=== PATIENT | female | born 1960 | race African-American/Black ===

== ENCOUNTER 2023-10-16 08:18 | Outpatient (REF) | payer MEDICAID, SELFPAY ==
[2023-10-16 10:22] LABS: MANUAL DIFF FLAG NO
[2023-10-16 10:25] LABS: Basophils Percent Auto 0.5 % (0-2); Eosinophils Absolute Auto 0.1 X10*3/uL (0.0-0.4); Eosinophils Percent Auto 1.2 % (0-4); Hematocrit 40.9 % (37.0-47.0); Hemoglobin 14.3 g/dl (12.0-16.0); Imm Gran Abs Auto 0.04 X10*3/uL (0.00-0.03); Imm Gran Pct Auto 0.5 % (0.0-0.4); Lymphocytes Absolute Auto 2.7 X10*3/uL (1.2-4.9); Lymphocytes Percent Auto 30.9 % (20-40); Mean Corpuscular Hemoglobin 32.3 pg (27.0-33.0); Mean Corpuscular Volume 92.3 fL (80.0-98.0); Mean Platelet Volume 8.7 fL (9.4-12.3); Monocytes Absolute Auto 0.5 X10*3/uL (0.1-1.2); Monocytes Percent Auto 5.2 % (2-11); Neutrophils Absolute Auto 5.3 x10*3/uL (2.0-8.3); Neutrophils Percent Auto 61.7 % (45-73); Platelet Count 318 X10*3/uL (160-400); Red Blood Count 4.43 X10*6/uL (4.20-5.50); Red Cell Distribution Width 13.5 % (11.0-16.0); White Blood Count 8.6 X10*3/uL (4.8-10.8)
[2023-10-16 11:02] LABS: Free T4 (Free Thyroxine) 1.03 ng/dL (0.71-1.85); Thyroid Stimulating Hormone 1.17 uIU/mL (0.32-4.0)
[2023-10-16 11:29] LABS: Alanine Aminotransferase 10 U/L (0-31); Albumin Level 2.8 g/dL (3.5-5.0); Alkaline Phosphatase 76 U/L (39-117); Anion Gap 14 (12-20); Aspartate Amino Transferase 15 U/L (5-31); Bilirubin Total 0.3 mg/dL (0.0-1.0); Blood Urea Nitrogen 9 mg/dL (9-16); C Reactive Protein 0.31 mg/dL (< or = 0.50); Calcium 8.6 mg/dL (8.4-10.2); Carbon Dioxide 27 mmol/L (22-29); Chloride 93 mmol/L (96-108); Cholesterol 249 mg/dL (<200); Estimated Glomerular Filt Rate > 60; Glucose Random 420 mg/dL (60-115); Potassium 3.3 mmol/L (3.3-5.1); Sodium 131 mmol/L (135-145); Total Protein 7.4 g/dL (6.5-8.0)
== END 2023-10-16 08:19 | disposition home or self-care (01) ==
LOC: HO.LHD 08:18
PROVIDERS: Visit Provider Internal Medicine
DX: R63.4 Abnormal weight loss (principal); G47.33 Obstructive sleep apnea (adult) (pediatric)
CPT/HCPCS: 36415; 80053; 82465; 84439; 84443; 85025; 86140

== ENCOUNTER 2024-09-10 19:58 | Inpatient (IN) | payer MEDICARE, MEDICAID, SELFPAY ==
--- NOTE | ~2024-09-10 | XR_ITS ---
CLINICAL HISTORY: foot infection 3 view left foot Comparison: None Findings: Bones intact. No dislocations. There is diffuse demineralization. There is no cortical or periosteal reactive changes. No significant loss of joint space, osteophytes, or erosions. No ankle effusion. No radiopaque foreign body. IMPRESSION: 1. No acute findings. This document has been electronically signed by: Timur Weaver MD on 09/11/2024 06:41:46
[2024-09-10 20:36] VITALS: BP 126/77; BP 132/76; PULSE 81; PULSE 83; RESP 18; TEMP 35.8; O2SAT 97; BMI 32.3
[2024-09-10 22:34] VITALS: BP 123/72; PULSE 78; RESP 16; O2SAT 98
--- NOTE | 2024-09-10 23:11 | PC.NURSE ---
assist pt with bed correia. foot wound self drained at this time
[2024-09-11] VITALS (9 sets, daily range): BP systolic 106–123; BP diastolic 55–75; PULSE 75–93; RESP 16–19; TEMP 36.4–36.7; O2SAT 95–100
--- NOTE | 2024-09-11 00:51 | ED_ITS ---
HPI - Wound/Laceration General Chief Complaint: Wound/Laceration Stated Complaint: flaring and blistering on L foot Time Seen by Provider: 09/11/24 00:29 Source: patient and family () Mode of arrival: EMS Limitations: no limitations History of Present Illness ED Provider: Dr. Wil Rosas HPI narrative: 64-year-old female with a history of prediabetes, hypertension, obstructive sleep apnea, obesity, bed-bound since 2007 who presents emergency department for evaluation of possible infection of her left foot. The patient states that she developed a heel blister which then spread to her entire foot and then ruptured. She denies any pain in her foot but has noticed increased redness and increased warmth to the foot. Patient denied fever or chills but states she has had increased fatigue. The patient does have a penicillin allergy and had a rash to penicillin and also I reaction to Biaxin. She has not been on antibiotics recently and does not have a history of MRSA. Related Data Allergies Allergy/AdvReac Type Severity Reaction Status Date / Time clarithromycin [From Biaxin] Allergy Unknown Verified 09/10/24 20:40 doxycycline [Doxycycline] Allergy Unknown Verified 09/10/24 20:40 Penicillins Allergy Unknown Verified 09/10/24 20:40 From Keflex Allergy Unknown Uncoded 09/10/24 20:40 Review of Systems 2 Review of Systems: Yes all other systems are reviewed and are negative [facility] Past Medical History [facility] Narrative: Social history: She lives at home with her who is here in the emergency department with her. She denies tobacco, alcohol and drug use. Social History Social History Smoked in Last 30 Days: No Use of substances other than those prescribed or required for medical reasons: No Advance Directives: No Advance Directives Information Provided: No Physical Exam 2 Vital Signs: Vital Signs: Last Vital Signs Temp 97.5 F 09/11/24 01:24 Pulse 88 09/11/24 02:36 Resp 18 09/11/24 02:36 BP 113/66 09/11/24 02:36 Pulse Ox 98 09/11/24 02:36 O2 Del Method Room Air 09/11/24 02:36 BMI result Body Mass Index 32.3 Vital signs were normal Exam: General: Awake, alert in no distress Head: Normocephalic, atraumatic EENT: Lids normal, sclera normal, conjunctiva normal, mouth revealed moist membranes Neck: Supple, no adenopathy Lung: breath sounds symmetric, no wheezing, rales or rhonchi Chest: symmetric movement, nontender Heart: regular rate and rhythm, normal S1, S2 no murmurs or rubs Abdomen: soft, obese, non-tender, nondistended, normal bowel sounds Extremities: Patient has an unroofed blister to her left heel with increased erythema to the plantar surface of the foot with increased warmth, patient had a large blister of the foot which is now deflated with 1 intact blister to the 1st toe. Neuro: Awake, alert, oriented, normal speech, cranial nerves intact, moves all extremities symmetrically Psych: Pleasant, cooperative Before(provided by ) and current photos of left foot Medications Administered Discontinued Medications Generic Name Dose Route Start Last Admin Trade Name Freq PRN Reason Stop Dose Admin Sodium Chloride 1,000 mls @ 999 mls/hr 09/11/24 00:43 09/11/24 02:14 Ns IV 09/11/24 01:43 Infused .Q1H1M STA Infusion Cefazolin Sodium/Dextrose 2 gm in 50 mls @ 100 mls/hr 09/11/24 01:00 09/11/24 01:43 Ancef IV 09/11/24 01:29 Infused ONCE ONE Infusion Medical Decision Making Medical Decision Making MDM Narrative: 64-year-old female with a history of prediabetes, hypertension, obstructive sleep apnea, obesity, bed-bound since 2007 who presents emergency department for evaluation of possible infection of her left foot. The patient states that she developed a heel blister which then spread to her entire foot and then ruptured. She denies any pain in her foot but has noticed increased redness and increased warmth to the foot. Patient denied fever or chills but states she has had increased fatigue. The patient does have a penicillin allergy and had a rash to penicillin and also I reaction to Biaxin. She has not been on antibiotics recently and does not have a history of MRSA. Patient's left foot is erythematous warm to the touch and has a deflated large blister with 1 intact blister to the 1st toe. Differential diagnosis: ?Includes but is not limited to cellulitis caused by toxin produce Streptococcus or Staphylococcus (bullous impetigo), anemia, electrolyte abnormalities Course: Patient's presentation physical examination is consistent with bullous impetigo most likely secondary to a toxin producing staph or strep. I did order laboratory evaluation to include CBC, CMP, ESR, CRP, lactic acid, blood cultures x2 and culture of the unroofed blister of the heel. Patient was ordered to get normal saline IV x1 L and Ancef 2 g IV. I will discuss admission with the covering hospitalist and he requested that admission be held off until laboratory evaluation was available.. 03:38 My independent interpretation patient's laboratory evaluation as follows: WBC elevated 11,700. H&H was normal 14.5 and 40.9. ESR elevated 75. Lactic acid was normal at 1.3. Glucose elevated 168. LFTs were normal. ESR elevated 75. CRP elevated 1.04. I did discuss patient's laboratory evaluation with the covering hospitalist, Dr. Finn and the patient will be admitted for further treatment. Admission/Observation Consideration of admission/observation: Escalation of care including admission/observation considered (Yes) Lab Data 09/11/24 01:09 09/11/24 02:33 Labs: Lab Results 09/11/24 09/11/24 Range/Units 01:09 02:33 WBC 11.7 H (4.8-10.8) X10*3/uL RBC 4.62 (4.20-5.50) X10*6/uL Hgb 14.5 (12.0-16.0) g/dl Hct 40.9 (37.0-47.0) % MCV 88.5 (80.0-98.0) fL MCH 31.4 (27.0-33.0) pg MCHC 35.5 H (31.0-35.0) g/dl RDW 13.8 (11.0-16.0) % Plt Count 299 (160-400) X10*3/uL MPV 8.7 L (9.4-12.3) fL Immature Gran % (Auto) 0.3 (0.0-0.4) % Neut % (Auto) 65.3 (45-73) % Lymph % (Auto) 25.5 (20-40) % [place] % (Auto) 6.2 (2-11) % Eos % (Auto) 2.4 (0-4) % Baso % (Auto) 0.3 (0-2) % Lymph # (Auto) 3.0 (1.2-4.9) X10*3/uL [place] # (Auto) 0.7 (0.1-1.2) X10*3/uL Eos # (Auto) 0.3 (0.0-0.4) X10*3/uL Baso # (Auto) 0.0 (0.0-0.2) X10*3/uL Abs Immat Gran (auto) 0.03 (0.00-0.03) X10*3/uL Absolute Neuts (auto) 7.6 (2.0-8.3) x10*3/uL Absolute Nucleated RBC 0.000 (0.0-0.012) X10*3/uL Nucleated RBC % (auto) 0.0 (0.0-0.2) /100WBC ESR 75 H (0-20) MM/HR Sodium 139 (135-145) mmol/L Potassium 3.5 (3.3-5.1) mmol/L Chloride 102 (96-108) mmol/L Carbon Dioxide 26 (22-29) mmol/L Anion Gap 15 (12-20) BUN 10 (9-16) mg/dL Creatinine 0.55 (0.5-1.4) mg/dL Estim Creat Clear Calc 115.7 Estimated GFR > 60 Random Glucose 168 H (60-115) mg/dL Lactic Acid 1.3 (0.5-2.0) mmol/L Calcium 8.5 (8.4-10.2) mg/dL Total Bilirubin 0.4 (0.0-1.0) mg/dL AST 19 (5-31) U/L ALT 10 (0-31) U/L Alkaline Phosphatase 88 (39-117) U/L C-Reactive Protein 1.04 H (< or = 0.50) mg/dL Total Protein 7.4 (6.5-8.0) g/dL Albumin 3.0 L (3.5-5.0) g/dL Independent Historian Clinical information obtained from an independent historian. History obtained from or confirmed by: Spouse Chronic Conditions Patient?s care impacted by: Hypertension Discharge Plan Discharge Clinical Impression: Bullous impetigo, Cellulitis of left foot Patient Disposition: Admitted As Inpatient Print Language: Ugandan
[2024-09-11] MEDS: 0.9 % Sodium Chloride 1,000 ML 999 ML IV (01:13)
[2024-09-11] MEDS: ceFAZolin Sodium/Dextrose,Iso 2 GM/50 ML PIGGYBACK IV (01:13)
[2024-09-11 01:22] LABS: MANUAL DIFF FLAG NO
[2024-09-11 01:23] LABS: Basophils Percent Auto 0.3 % (0-2); Eosinophils Absolute Auto 0.3 X10*3/uL (0.0-0.4); Eosinophils Percent Auto 2.4 % (0-4); Hematocrit 40.9 % (37.0-47.0); Hemoglobin 14.5 g/dl (12.0-16.0); Imm Gran Abs Auto 0.03 X10*3/uL (0.00-0.03); Imm Gran Pct Auto 0.3 % (0.0-0.4); Lymphocytes Percent Auto 25.5 % (20-40); Mean Corpuscular HGB Conc 35.5 g/dl (31.0-35.0); Mean Corpuscular Hemoglobin 31.4 pg (27.0-33.0); Mean Corpuscular Volume 88.5 fL (80.0-98.0); Mean Platelet Volume 8.7 fL (9.4-12.3); Monocytes Absolute Auto 0.7 X10*3/uL (0.1-1.2); Monocytes Percent Auto 6.2 % (2-11); Neutrophils Absolute Auto 7.6 x10*3/uL (2.0-8.3); Neutrophils Percent Auto 65.3 % (45-73); Platelet Count 299 X10*3/uL (160-400); Red Blood Count 4.62 X10*6/uL (4.20-5.50); Red Cell Distribution Width 13.8 % (11.0-16.0); White Blood Count 11.7 X10*3/uL (4.8-10.8)
[2024-09-11 01:36] LABS: Lactic Acid 1.3 mmol/L (0.5-2.0)
[2024-09-11 01:56] LABS: Erythrocyte Sedimentation Rate 75 MM/HR (0-20)
[2024-09-11 03:06] LABS: Alanine Aminotransferase 10 U/L (0-31); Alkaline Phosphatase 88 U/L (39-117); Anion Gap 15 (12-20); Aspartate Amino Transferase 19 U/L (5-31); Bilirubin Total 0.4 mg/dL (0.0-1.0); Blood Urea Nitrogen 10 mg/dL (9-16); C Reactive Protein 1.04 mg/dL (< or = 0.50); Calcium 8.5 mg/dL (8.4-10.2); Carbon Dioxide 26 mmol/L (22-29); Chloride 102 mmol/L (96-108); Creatinine Clr Calc Pharmacy 115.7; Estimated Glomerular Filt Rate > 60; Glucose Random 168 mg/dL (60-115); Potassium 3.5 mmol/L (3.3-5.1); Sodium 139 mmol/L (135-145); Total Protein 7.4 g/dL (6.5-8.0)
--- NOTE | 2024-09-11 03:43 | PM.IMHP ---
History of Present Illness Date of Service: 09/11/24 Chief Complaint: Left foot infection This is a 64-year-old female with pertinent history of hypertension, MAR on CPAP, bed-bound, obesity presents to the emergency department for concerns of left foot infection. Patient states she noticed a blister to the plantar aspect of left foot 4 days prior to presentation. It has spread to the entire left foot and then ruptured. Patient noticed her left foot has become more erythematous and warmth which has been progressive. No history of skin infections in the past. No preceding event as per the patient. She denies any systemic complaints including fever, chills, nausea or vomiting. No chest pain, palpitations, shortness of breath, abdominal pain, changes in urinary or bowel habits. Patient has been bed-bound since 2007. In the emergency department, patient was given empiric IV antibiotics. Review of Systems Constitutional: Constitutional: Reports no additional constitutional complaints Cardiovascular: Cardiovascular: Reports no additional cardiovascular complaints Respiratory: Respiratory: Reports no additional respiratory complaints Gastrointestinal: Gastrointestinal: Reports no additional gastrointestinal complaints Genitourinary: Genitourinary: Reports no additional female genitourinary complaints [facility] Medical History Obstructive sleep apnea Hypertension Functional capacity: bed bound Patient : No Pertinent family history: No family history of early CAD Social History Smoked in Last 30 Days: No Use of substances other than those prescribed or required for medical reasons: No Advance Directives: No Advance Directives Information Provided: No Meds Allergies Allergy/AdvReac Type Severity Reaction Status Date / Time clarithromycin [From Biaxin] Allergy Unknown Verified 09/10/24 20:40 doxycycline [Doxycycline] Allergy Unknown Verified 09/10/24 20:40 Penicillins Allergy Unknown Verified 09/10/24 20:40 From Keflex Allergy Unknown Uncoded 09/10/24 20:40 Physical Exam Vital Signs and Narrative: Vital Signs: Last Vital Signs Temp 97.5 F 09/11/24 01:24 Pulse 88 09/11/24 02:36 Resp 18 09/11/24 02:36 BP 113/66 09/11/24 02:36 Pulse Ox 98 09/11/24 02:36 O2 Del Method Room Air 09/11/24 02:36 BMI result Body Mass Index 32.3 Middle-aged female lying in bed in no distress Neck supple, no JVD Regular rate and rhythm, S1-S2 heard Regular breath sounds bilaterally, no wheezing or crackles appreciated Abdomen soft, obese, nontender, no guarding, no rigidity Patient is awake, alert and oriented to self, place, time and person ; no focal motor deficit Psych: Normal mood Left foot with erythema to the plantar surface, warmth and bulla to the left 1st toe (patient had a large bulla to the plantar surface of the foot which is now deflated) <before and after pics as below> Skin: Other: Results Labs 09/11/24 01:09 09/11/24 02:33 Labs: Laboratory Results - last 24 hr 09/11/24 09/11/24 01:09 02:33 MCV 88.5 MCH 31.4 MCHC 35.5 H RDW 13.8 Plt Count 299 MPV 8.7 L Immature Gran % (Auto) 0.3 Neut % (Auto) 65.3 Lymph % (Auto) 25.5 [place] % (Auto) 6.2 Eos % (Auto) 2.4 Baso % (Auto) 0.3 Lymph # (Auto) 3.0 [place] # (Auto) 0.7 Eos # (Auto) 0.3 Baso # (Auto) 0.0 Abs Immat Gran (auto) 0.03 Absolute Neuts (auto) 7.6 Absolute Nucleated RBC 0.000 Nucleated RBC % (auto) 0.0 ESR 75 H Anion Gap 15 Estim Creat Clear Calc 115.7 Estimated GFR > 60 Random Glucose 168 H Lactic Acid 1.3 Calcium 8.5 Total Bilirubin 0.4 AST 19 ALT 10 Alkaline Phosphatase 88 C-Reactive Protein 1.04 H Total Protein 7.4 Albumin 3.0 L Assessment and Plan (1) Cellulitis of left foot: Status: Acute Plan This is a 64-year-old female with pertinent history of hypertension, MAR on CPAP, bed-bound, obesity presents to the emergency department for concerns of left foot infection. #. Severe left foot cellulitis with bullae: Will admit patient with broad-spectrum empiric IV antibiotics due to extensive infection (penicillin allergy). Wound care consult. Monitor for improvement. Left foot imaging pending #. Hypertension: Continue home antihypertensives #. MAR: Continue CPAP at bedtime #. Obesity: Counseled regarding diet Med rec pending DVT prophylaxis: Lovenox Full code Admit as inpatient and will require two night minimum hospital stay for IV antibiotics (as above), which is not possible in a lesser acute setting. Quality Stroke Does the patient have a stroke diagnosis?: No VTE Prior VTE?: No VTE Risk Level:: Medical - moderate - high VTE Device Contraindication: Treatment Not Indicated VTE Drug Contraindication: N/A - Med Ordered
[2024-09-11] MEDS: vancomycin/NS 2,000 MG/500 ML PLAST..BAG 250 MG IV (04:59)
[2024-09-11] MEDS: Enoxaparin Sodium 40 MG/0.4 ML SYRINGE SUBCUT (05:00)
[2024-09-11 06:49] LABS: MANUAL DIFF FLAG NO
[2024-09-11 07:02] LABS: Anion Gap 14 (12-20); Blood Urea Nitrogen 10 mg/dL (9-16); Calcium 8.4 mg/dL (8.4-10.2); Carbon Dioxide 27 mmol/L (22-29); Chloride 101 mmol/L (96-108); Creatinine Clr Calc Pharmacy 115.7; Estimated Glomerular Filt Rate > 60; Glucose Random 192 mg/dL (60-115); Potassium 3.2 mmol/L (3.3-5.1); Sodium 139 mmol/L (135-145)
--- NOTE | 2024-09-11 07:05 | PC.NURSE ---
report given to oncoming RN
--- NOTE | 2024-09-11 07:10 | PC.NURSE ---
This play writer assumed care of this Pt at this time.
[2024-09-11] MEDS: cefEPime HCl/D5W 2 GM/50 ML PIGGYBACK IV ×2 (07:14→13:28)
[2024-09-11 07:15] LABS: Basophils Percent Auto 0.4 % (0-2); Eosinophils Absolute Auto 0.1 X10*3/uL (0.0-0.4); Eosinophils Percent Auto 0.9 % (0-4); Hematocrit 38.7 % (37.0-47.0); Hemoglobin 13.3 g/dl (12.0-16.0); Imm Gran Abs Auto 0.05 X10*3/uL (0.00-0.03); Imm Gran Pct Auto 0.5 % (0.0-0.4); Lymphocytes Absolute Auto 1.6 X10*3/uL (1.2-4.9); Lymphocytes Percent Auto 15.9 % (20-40); Mean Corpuscular HGB Conc 34.4 g/dl (31.0-35.0); Mean Corpuscular Hemoglobin 31.1 pg (27.0-33.0); Mean Corpuscular Volume 90.4 fL (80.0-98.0); Mean Platelet Volume 8.9 fL (9.4-12.3); Monocytes Absolute Auto 0.7 X10*3/uL (0.1-1.2); Monocytes Percent Auto 6.6 % (2-11); Neutrophils Absolute Auto 7.7 x10*3/uL (2.0-8.3); Neutrophils Percent Auto 75.7 % (45-73); Platelet Count 265 X10*3/uL (160-400); Red Blood Count 4.28 X10*6/uL (4.20-5.50); Red Cell Distribution Width 13.8 % (11.0-16.0); White Blood Count 10.1 X10*3/uL (4.8-10.8)
[2024-09-11] MEDS: 0.9 % Sodium Chloride Flush 3 ML SYRINGE IVFLUSH ×2 (07:17→16:21)
--- NOTE | 2024-09-11 07:23 | PHA.PROG ---
Admission Date/Time: September 11, 2024 03:41 Indication: Skin Weight in k.718 kg Adjusted body weight in K [place] body weight in Kg: Obesity Dosing Indication % IBW: Serum Creatinine - Last 168 Hours 09/11/24 09/11/24 02:33 06:27 Creatinine 0.55 0.55 Estimated CrCl and GFR - Last 168 Hours 09/11/24 09/11/24 02:33 06:27 Estim Creat Clear Calc 115.7 115.7 Estimated GFR > 60 > 60 Vancomycin Loading Dose: 2000 Current Vancomycin Dosing Regimen: 1250 mg Vancomycin Monitoring using AUC goal of 400 - 600 range with trough as surrogate marker: 475 Date and Time for next Vancomycin Level to be drawn: 09/12 @1700 Pharmacist Comments on Vancomycin Plan: Vancomycin dosing will take advantage of [employer] as a clinical decision support tool that uses Bayesian modeling to calculate individual patient's pharmacokinetic parameters and forecast the patient's drug concentration time course with the target goal AUC 24 range of 400 - 600 mg/L/hr.
[2024-09-11] MEDS: metroNIDAZOLE/NS 500 MG/100 ML PIGGYBACK 100 MG IV ×3 (07:44→22:14)
--- NOTE | 2024-09-11 08:27 | PHA.MEDREC ---
Pharmacy Consult ? Medication Reconciliation Pharmacy has completed the medication reconciliation.Med rec complete, patient able to confirm her 2 prescription blood pressure medications. Patient is also on several supplements but unsure of the dosage of many.
--- NOTE | 2024-09-11 08:59 | PM.EVENT ---
Event Note Date of Service: 09/11/24 Event Note: Chart reviewed patient examined. Agree with H&P and assessment and plan as outlined Time Spent With Patient Time: Total time managing care of this patient today ____ minutes.
[2024-09-11] MEDS: Potassium Chloride Packet 20 MEQ PACKET 40 MEQ PO ×2 (09:41→21:40)
[2024-09-11] MEDS: Ascorbic Acid 500 MG TABLET PO ×2 (09:42→21:41)
[2024-09-11] MEDS: hydroCHLOROthiazide 25 MG TABLET PO (09:42)
[2024-09-11] MEDS: Cholecalciferol (Vitamin D3) 10 MCG TABLET PO (09:42)
[2024-09-11] MEDS: Metoprolol Tartrate 50 MG TABLET PO ×2 (09:42→21:40)
--- NOTE | 2024-09-11 10:50 | MHC.CM.PN ---
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 SHE IS WAITING FOR HIS OFFICE TO ASSIGN HER A NEW PROVIDER IMM DELIVERED DCP: HOME WITH RESUMPTION OF FAMILY SUPPORT. BLS TRANSPORT
[2024-09-11] MEDS: vancomycin HCL 1,250 MG in 0.9 % Sodium Chloride 250 ML 166.67 MG IV (17:21)
[2024-09-12] VITALS (7 sets, daily range): BP systolic 105–135; BP diastolic 60–77; PULSE 82–94; RESP 18–20; TEMP 36.2–36.6; O2SAT 93–98
[2024-09-12] MEDS: cefEPime HCl/D5W 2 GM/50 ML PIGGYBACK IV ×3 (00:03→15:49)
[2024-09-12] MEDS: vancomycin HCL 1,250 MG in 0.9 % Sodium Chloride 250 ML 166.67 MG IV ×2 (04:38→17:57)
[2024-09-12] MEDS: Enoxaparin Sodium 40 MG/0.4 ML SYRINGE SUBCUT (04:38)
[2024-09-12] MEDS: metroNIDAZOLE/NS 500 MG/100 ML PIGGYBACK 100 MG IV ×3 (06:19→22:31)
[2024-09-12 06:30] LABS: MANUAL DIFF FLAG NO
[2024-09-12 06:40] LABS: Basophils Percent Auto 0.3 % (0-2); Eosinophils Absolute Auto 0.2 X10*3/uL (0.0-0.4); Eosinophils Percent Auto 2.5 % (0-4); Hematocrit 38.9 % (37.0-47.0); Hemoglobin 13.5 g/dl (12.0-16.0); Imm Gran Abs Auto 0.02 X10*3/uL (0.00-0.03); Imm Gran Pct Auto 0.2 % (0.0-0.4); Lymphocytes Absolute Auto 1.9 X10*3/uL (1.2-4.9); Lymphocytes Percent Auto 20.2 % (20-40); Mean Corpuscular HGB Conc 34.7 g/dl (31.0-35.0); Mean Corpuscular Hemoglobin 31.3 pg (27.0-33.0); Mean Corpuscular Volume 90.3 fL (80.0-98.0); Mean Platelet Volume 8.5 fL (9.4-12.3); Monocytes Absolute Auto 0.7 X10*3/uL (0.1-1.2); Monocytes Percent Auto 7.2 % (2-11); Neutrophils Absolute Auto 6.4 x10*3/uL (2.0-8.3); Neutrophils Percent Auto 69.6 % (45-73); Platelet Count 265 X10*3/uL (160-400); Red Blood Count 4.31 X10*6/uL (4.20-5.50); Red Cell Distribution Width 13.8 % (11.0-16.0); White Blood Count 9.2 X10*3/uL (4.8-10.8)
[2024-09-12 06:54] LABS: Creatinine Clr Calc Pharmacy 107.8; Estimated Glomerular Filt Rate > 60
[2024-09-12] MEDS: Metoprolol Tartrate 50 MG TABLET PO ×2 (08:07→19:53)
[2024-09-12] MEDS: Pyridoxine HCl (Vitamin B6) 50 MG TABLET 25 MG PO (08:07)
[2024-09-12] MEDS: Cholecalciferol (Vitamin D3) 10 MCG TABLET PO (08:08)
[2024-09-12] MEDS: hydroCHLOROthiazide 25 MG TABLET PO (08:08)
[2024-09-12] MEDS: 0.9 % Sodium Chloride Flush 3 ML SYRINGE IVFLUSH ×3 (08:08→19:44)
[2024-09-12] MEDS: Ascorbic Acid 500 MG TABLET PO ×2 (08:08→19:53)
[2024-09-12 08:38] LABS: Anion Gap 14 (12-20); Blood Urea Nitrogen 12 mg/dL (9-16); Calcium 8.5 mg/dL (8.4-10.2); Carbon Dioxide 25 mmol/L (22-29); Chloride 103 mmol/L (96-108); Glucose Random 155 mg/dL (60-115); Potassium 3.6 mmol/L (3.3-5.1); Sodium 138 mmol/L (135-145)
--- NOTE | 2024-09-12 15:55 | PM.CNGS ---
History of Present Illness Consult details Consult date: 09/12/24 Reason for consult: other Requesting physician: Venkat Porras Narrative: This is a 64-year-old female with pertinent history of hypertension, MAR on CPAP, bed-bound, obesity presents to the emergency department for concerns of left foot infection. Patient states she noticed a blister to the plantar aspect of left foot 4 days prior to presentation. It has spread to the entire left foot and then ruptured. Patient noticed her left foot has become more erythematous and warmth which has been progressive. No history of skin infections in the past. No preceding event as per the patient. She denies any systemic complaints including fever, chills, nausea or vomiting. No chest pain, palpitations, shortness of breath, abdominal pain, changes in urinary or bowel habits. Patient has been bed-bound since 2007. Review of Systems Review of Systems: Yes all other systems are reviewed and are negative PMFSH Past Medical History Medical History Obstructive sleep apnea Hypertension Social History Social History Household Members: Spouse Housing: House Do you presently have visiting nurse or other home services: No (previously had with help w/ ADLs) Patient Tobacco Use Status: Never used Tobacco e-Cigarette/Vaping Use: Never Used Second Hand Smoke Exposure: No service: No Meds Allergies Allergy/AdvReac Type Severity Reaction Status Date / Time clarithromycin [From Biaxin] Allergy Unknown Verified 09/10/24 20:40 doxycycline [Doxycycline] Allergy Unknown Verified 09/10/24 20:40 Penicillins Allergy Unknown Verified 09/10/24 20:40 From Keflex Allergy Unknown Uncoded 09/10/24 20:40 Active Medications: Current Medications Acetaminophen (Acetaminophen 325 Mg Tablet) 650 mg PO Q6H PRN PRN Reason: Pain, Mild 1-3,fever,headache Ascorbic Acid (Ascorbic Acid 500 Mg Tablet) 500 mg PO BID [facility] Last Admin: 09/12/24 08:08 Dose: 500 mg Calcium Carbonate (Calcium Carbonate 750 Mg Tab.Chew) 750 mg PO Q4H PRN PRN Reason: Heartburn Enoxaparin Sodium (Enoxaparin Sodium 40 Mg/0.4 Ml Syringe) 40 mg SUBCUT Q24H [facility] Last Admin: 09/12/24 04:38 Dose: 40 mg Hydrochlorothiazide (Hydrochlorothiazide 25 Mg Tablet) 25 mg PO DAILY [facility]; Protocol Last Admin: 09/12/24 08:08 Dose: 25 mg Vancomycin HCl 1,250 mg/ (Sodium Chloride) 250 mls @ 166.667 mls/hr IV Q12H [facility] Last Infusion: 09/12/24 06:14 Dose: Infused Metronidazole (Flagyl) 500 mg in 100 mls @ 100 mls/hr IV Q8H [facility] Last Infusion: 09/12/24 14:34 Dose: Infused Cefepime HCl (Maxipime) 2 gm in 50 mls @ 100 mls/hr IV Q8H [facility] Last Admin: 09/12/24 15:49 Dose: 100 mls/hr Magnesium Hydroxide (Milk Of Magnesia 30 Ml Oral.Susp) 30 ml PO DAILY PRN PRN Reason: Constipation Melatonin (Melatonin 3 Mg Tablet) 6 mg PO BEDTIME PRN PRN Reason: Insomnia Metoprolol Tartrate (Metoprolol Tartrate 50 Mg Tablet) 50 mg PO BID [facility]; Protocol Last Admin: 09/12/24 08:07 Dose: 50 mg Ondansetron HCl (Ondansetron Hcl 4 Mg/2 Ml Vial) 4 mg IVPUSH Q8H PRN PRN Reason: Nausea and Vomiting Pharmacy Consult (Consult Rx Vancomycin Dosing) 1 each MISCELLANE DAILY PRN PRN Reason: Consult order Pyridoxine HCl (Pyridoxine Hcl (Vitamin B6) 50 Mg Tablet) 25 mg PO DAILY [facility] Last Admin: 09/12/24 08:07 Dose: 25 mg Sodium Chloride (0.9 % Sodium Chloride Flush 3 Ml Syringe) 3 ml IVFLUSH QSHIFT [facility] Last Admin: 09/12/24 15:49 Dose: 3 ml Vitamin D (Cholecalciferol (Vitamin D3) 10 Mcg Tablet) 10 mcg PO DAILY [facility] Last Admin: 09/12/24 08:08 Dose: 10 mcg Home Medications ?Medication ?Instructions ?Recorded ?Confirmed ?Last Taken ?Type Lactobacillus acidophilus 0 mg PO DAILY 09/11/24 Unknown History (Acidophilus capsule) ascorbic acid (vitamin C) 500 mg 500 mg PO BID 09/11/24 09/11/24 Unknown History tablet cholecalciferol (vitamin D3) 10 10 mcg PO DAILY 09/11/24 09/11/24 Unknown History mcg (400 unit) capsule (Vitamin D3) ferrous gluconate 325 mg (37 mg 0 mg 09/11/24 Unknown History iron) tablet hydrochlorothiazide 25 mg tablet 25 mg PO DAILY 09/11/24 09/11/24 09/10/24 History metoprolol tartrate 50 mg tablet 50 mg PO BID 09/11/24 09/11/24 09/10/24 History pyridoxine (vitamin B6) 25 mg 25 mg PO DAILY 09/11/24 09/11/24 Unknown History tablet (Vitamin B-6) vitamin E 268 mg (400 unit) capsule 0 mg PO DAILY 09/11/24 Unknown History Physical Exam Vital Signs: Vital Signs: Last Vital Signs Temp 98 F 09/12/24 15:22 Pulse 89 09/12/24 15:22 Resp 18 09/12/24 15:22 BP 114/77 09/12/24 15:22 Pulse Ox 93 09/12/24 15:22 O2 Del Method Room Air 09/12/24 15:22 BMI result Body Mass Index 32.3 Const: General: cooperative, healthy appearing, comfortable and no acute distress Skin: Other: Left foot has large bullae of serous fluid both on the dorsal foot going to the lateral aspect going around the back of the heel and on the plantar aspect as well. These were all debrided removing the skin and just clear yellowish fluid was removed nothing that looked worrisome. The tissue underneath looks relatively healthy. [place] into the deeper dermal tissue. Since foot mildly edematous palpable pedal pulse Results Labs 09/12/24 06:26 09/12/24 06:26 Labs: Abnormal lab results 09/12/24 Range/Units 06:26 MPV 8.5 L (9.4-12.3) fL Random Glucose 155 H (60-115) mg/dL Short CBC 09/12/24 Range/Units 06:26 WBC 9.2 (4.8-10.8) X10*3/uL Hgb 13.5 (12.0-16.0) g/dl Hct 38.9 (37.0-47.0) % Plt Count 265 (160-400) X10*3/uL BMP 09/12/24 06:26 Sodium 138 Potassium 3.6 Chloride 103 Carbon Dioxide 25 BUN 12 Creatinine 0.59 Calcium 8.5 All other labs normal. Imaging Additional studies: Signed Patient: Bertha Patel MR#: [id number] : 1960 Acct:[id number] Age/Sex: 64 / F ADM Date: 09/11/24 Loc: [facility]: Ashley Finn MD Ordering Physician: Ashley Finn MD Date of Service: 09/11/24 Procedure(s): XR foot LT min 3V Accession Number(s): [id number] cc: Morris Cardenas MD; Ashley Finn MD~ CLINICAL HISTORY: foot infection 3 view left foot Comparison: None Findings: Bones intact. No dislocations. There is diffuse demineralization. There is no cortical or periosteal reactive changes. No significant loss of joint space, osteophytes, or erosions. No ankle effusion. No radiopaque foreign body. IMPRESSION: 1. No acute findings. 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 Debrided this area and should improve now no deeper evidence of any infection. Continue treating with IV antibiotics. Would recommend Xeroform dressings daily until re-epithelialization occurs. Procedures Date of Service Date of Service: 09/12/24 Abscess I/D Site: foot Additional comments: Debridement of epidermal foot bullae just removal of skin no deeper tissue no evidence of any infection. Done with sharp scissors
[2024-09-12 17:19] LABS: Vancomycin Random 15.7 mcg/mL (15-20)
--- NOTE | 2024-09-12 18:15 | P.PNIM_ITS ---
Subjective Subjective Date of Service: 09/12/24 Interval History: Swelling and blisters initially improved yesterday and last night, though came back this morning Occasional clear drainage without purulence Denies foot pain, though some pressure/discomfort Chronic lower extremity numbness at baseline No fever, chills Denies SOB or difficulty breathing No CP Review of Systems Negative except for that which is stated in the HPI. Physical Exam 2 Vital Signs: Vital Signs: Last Vital Signs Temp 98 F 09/12/24 15:22 Pulse 89 09/12/24 15:22 Resp 18 09/12/24 15:22 BP 114/77 09/12/24 15:22 Pulse Ox 93 09/12/24 15:22 O2 Del Method Room Air 09/12/24 15:22 BMI result Body Mass Index 32.3 General: AOx3, no acute distress Resp: CTA bilaterally CVS: S1, S2, RRR GI: +BS, NT, no distention Skin: Warm, dry Neuro: Cranial nerves II-XII grossly intact bilaterally. Motor grossly intact bilaterally Extremities: Left lower extremity with swelling, erythema, warmth, in large bullae as pictured below. Left DP pulses 2+ and brisk cap refil. Psych: Appropriate affect Objective Data Active Medications Acetaminophen (Acetaminophen 325 Mg Tablet) 650 mg PO Q6H PRN PRN Reason: Pain, Mild 1-3,fever,headache Ascorbic Acid (Ascorbic Acid 500 Mg Tablet) 500 mg PO BID [facility] [place] Last Admin: 09/12/24 08:08 Dose: 500 mg Documented By: ANGELICA Calcium Carbonate (Calcium Carbonate 750 Mg Tab.Chew) 750 mg PO Q4H PRN PRN Reason: Heartburn Enoxaparin Sodium (Enoxaparin Sodium 40 Mg/0.4 Ml Syringe) 40 mg SUBCUT Q24H [facility] [place] Last Admin: 09/12/24 04:38 Dose: 40 mg Documented By: JERSON Hydrochlorothiazide (Hydrochlorothiazide 25 Mg Tablet) 25 mg PO DAILY [facility]; Protocol Last Admin: 09/12/24 08:08 Dose: 25 mg Documented By: ANGELICA Metronidazole (Flagyl) 500 mg in 100 mls @ 100 mls/hr IV Q8H [facility] [place] Last Infusion: 09/12/24 14:34 Dose: Infused Documented By: ANGELICA Cefepime HCl (Maxipime) 2 gm in 50 mls @ 100 mls/hr IV Q8H [facility] [place] Last Infusion: 09/12/24 16:25 Dose: Infused Documented By: ANGELICA Vancomycin HCl 1,250 mg/ (Sodium Chloride) 250 mls @ 166.667 mls/hr IV Q12H [facility] [place] Last Admin: 09/12/24 17:57 Dose: 166.67 mls/hr Documented By: ANGELICA Magnesium Hydroxide (Milk Of Magnesia 30 Ml Oral.Susp) 30 ml PO DAILY PRN PRN Reason: Constipation Melatonin (Melatonin 3 Mg Tablet) 6 mg PO BEDTIME PRN PRN Reason: Insomnia Metoprolol Tartrate (Metoprolol Tartrate 50 Mg Tablet) 50 mg PO BID [facility] [place]; Protocol Last Admin: 09/12/24 08:07 Dose: 50 mg Documented By: ANGELICA Ondansetron HCl (Ondansetron Hcl 4 Mg/2 Ml Vial) 4 mg IVPUSH Q8H PRN PRN Reason: Nausea and Vomiting Pharmacy Consult (Consult Rx Vancomycin Dosing) 1 each MISCELLANE DAILY PRN PRN Reason: Consult order Pyridoxine HCl (Pyridoxine Hcl (Vitamin B6) 50 Mg Tablet) 25 mg PO DAILY [facility] [place] [place] Last Admin: 09/12/24 08:07 Dose: 25 mg Documented By: ANGELICA Sodium Chloride (0.9 % Sodium Chloride Flush 3 Ml Syringe) 3 ml IVFLUSH QSHIFT [facility] [place] Last Admin: 09/12/24 15:49 Dose: 3 ml Documented By: ANGELICA Vitamin D (Cholecalciferol (Vitamin D3) 10 Mcg Tablet) 10 mcg PO DAILY [facility] [place] Last Admin: 09/12/24 08:08 Dose: 10 mcg Documented By: ANGELICA Labs 09/12/24 06:26 09/12/24 06:26 Labs: Laboratory Results - last 24 hr 09/12/24 09/12/24 06:26 16:56 MCV 90.3 MCH 31.3 MCHC 34.7 RDW 13.8 Plt Count 265 MPV 8.5 L Immature Gran % (Auto) 0.2 Neut % (Auto) 69.6 Lymph % (Auto) 20.2 [place] % (Auto) 7.2 Eos % (Auto) 2.5 Baso % (Auto) 0.3 Lymph # (Auto) 1.9 [place] # (Auto) 0.7 Eos # (Auto) 0.2 Baso # (Auto) 0.0 Abs Immat Gran (auto) 0.02 Absolute Neuts (auto) 6.4 Absolute Nucleated RBC 0.000 Nucleated RBC % (auto) 0.0 Anion Gap 14 Estim Creat Clear Calc 107.8 Estimated GFR > 60 Random Glucose 155 H Calcium 8.5 Random Vancomycin 15.7 Microbiology Microbiology Results: Microbiology 09/11/24 01:54 Gram Stain - Final Foot Left Routine Culture - Preliminary Culture in progress. 09/11/24 01:10 Blood Culture - Preliminary Blood - Venous No growth after 24 hours. 09/11/24 01:09 Blood Culture - Preliminary Blood - Venous No growth after 24 hours. Assessment and Plan (1) Cellulitis of left foot: Status: Acute (2) Bullous impetigo: Status: Acute Plan This is a 64-year-old female with pertinent history of hypertension, MAR on CPAP, bed-bound, obesity presents to the emergency department for concerns of left foot infection. Bullous impetigo Bulla initially improved, though worsened this morning Continue cefepime, vanc, and metronidazole No sepsis Wound care consult General surgery consult HTN Continue hydrochlorothiazide, metoprolol MAR Continue CPAP at night Obesity class 3 Encourage weight loss Pt will required continued hospital stay for IV antibiotics and specialist consultation with Wound Care and General surgery. Quality Stroke Does the patient have a stroke diagnosis?: No VTE Prior VTE?: No VTE Risk Level:: Medical - moderate - high VTE Device Contraindication: Treatment Not Indicated VTE Drug Contraindication: N/A - Med Ordered
[2024-09-13] VITALS (7 sets, daily range): BP systolic 111–132; BP diastolic 58–77; PULSE 79–95; RESP 17–20; TEMP 36.2–36.7; O2SAT 95–98
[2024-09-13] MEDS: cefEPime HCl/D5W 2 GM/50 ML PIGGYBACK IV ×4 (00:05→23:01)
[2024-09-13] MEDS: Enoxaparin Sodium 40 MG/0.4 ML SYRINGE SUBCUT (03:29)
[2024-09-13] MEDS: metroNIDAZOLE/NS 500 MG/100 ML PIGGYBACK 100 MG IV ×2 (05:36→13:46)
[2024-09-13] MEDS: vancomycin HCL 1,250 MG in 0.9 % Sodium Chloride 250 ML 166.67 MG IV (06:38)
[2024-09-13 06:39] LABS: Creatinine Clr Calc Pharmacy 96.4; Estimated Glomerular Filt Rate > 60
[2024-09-13] MEDS: Pyridoxine HCl (Vitamin B6) 50 MG TABLET 25 MG PO (08:17)
[2024-09-13] MEDS: 0.9 % Sodium Chloride Flush 3 ML SYRINGE IVFLUSH ×3 (08:18→23:04)
[2024-09-13] MEDS: Metoprolol Tartrate 50 MG TABLET PO ×2 (08:18→20:23)
[2024-09-13] MEDS: Ascorbic Acid 500 MG TABLET PO ×2 (08:18→20:23)
[2024-09-13] MEDS: Cholecalciferol (Vitamin D3) 10 MCG TABLET PO (08:18)
[2024-09-13] MEDS: hydroCHLOROthiazide 25 MG TABLET PO (08:18)
--- NOTE | 2024-09-13 09:55 | PM.PNGS ---
Subjective Subjective Date of Service: 09/13/24 Interval history: Denies new complaints Some pain in the left foot No events overnight Physical Exam Vital Signs: Vital Signs: Last Vital Signs Temp 97.6 F 09/13/24 07:45 Pulse 80 09/13/24 07:45 Resp 17 09/13/24 07:45 BP 114/58 L 09/13/24 07:45 Pulse Ox 96 09/13/24 07:45 O2 Del Method Room Air 09/13/24 07:45 BMI result Body Mass Index 32.3 Const: Other: appears morbidly obese General: comfortable and no acute distress Resp: Effort & Inspection: normal respiratory effort Cardio: Rate: regular rate GI: Palpation (GI): Soft to palpation Extrem: Other: Decompress bolus changes on the dorsal aspect of the left foot and the plantar aspect towards the heel, clean, no necrotic tissue Objective Data Active Medications Acetaminophen (Acetaminophen 325 Mg Tablet) 650 mg PO Q6H PRN PRN Reason: Pain, Mild 1-3,fever,headache Ascorbic Acid (Ascorbic Acid 500 Mg Tablet) 500 mg PO BID [facility] Last Admin: 09/13/24 08:18 Dose: 500 mg Documented By: MAU Calcium Carbonate (Calcium Carbonate 750 Mg Tab.Chew) 750 mg PO Q4H PRN PRN Reason: Heartburn Enoxaparin Sodium (Enoxaparin Sodium 40 Mg/0.4 Ml Syringe) 40 mg SUBCUT Q24H [facility] Last Admin: 09/13/24 03:29 Dose: 40 mg Documented By: ALAN Hydrochlorothiazide (Hydrochlorothiazide 25 Mg Tablet) 25 mg PO DAILY [facility]; Protocol Last Admin: 09/13/24 08:18 Dose: 25 mg Documented By: MAU Metronidazole (Flagyl) 500 mg in 100 mls @ 100 mls/hr IV Q8H [facility] Last Infusion: 09/13/24 06:42 Dose: Infused Documented By: ALAN Cefepime HCl (Maxipime) 2 gm in 50 mls @ 100 mls/hr IV Q8H [facility] Last Infusion: 09/13/24 09:21 Dose: Infused Documented By: MAU Vancomycin HCl 1,250 mg/ (Sodium Chloride) 250 mls @ 166.667 mls/hr IV Q12H [facility] Last Infusion: 09/13/24 08:19 Dose: Infused Documented By: MAU Magnesium Hydroxide (Milk Of Magnesia 30 Ml Oral.Susp) 30 ml PO DAILY PRN PRN Reason: Constipation Melatonin (Melatonin 3 Mg Tablet) 6 mg PO BEDTIME PRN PRN Reason: Insomnia Metoprolol Tartrate (Metoprolol Tartrate 50 Mg Tablet) 50 mg PO BID [facility]; Protocol Last Admin: 09/13/24 08:18 Dose: 50 mg Documented By: MAU Ondansetron HCl (Ondansetron Hcl 4 Mg/2 Ml Vial) 4 mg IVPUSH Q8H PRN PRN Reason: Nausea and Vomiting Pharmacy Consult (Consult Rx Vancomycin Dosing) 1 each MISCELLANE DAILY PRN PRN Reason: Consult order Pyridoxine HCl (Pyridoxine Hcl (Vitamin B6) 50 Mg Tablet) 25 mg PO DAILY [facility] Last Admin: 09/13/24 08:17 Dose: 25 mg Documented By: MAU Sodium Chloride (0.9 % Sodium Chloride Flush 3 Ml Syringe) 3 ml IVFLUSH QSHIFT [facility] Last Admin: 09/13/24 08:18 Dose: 3 ml Documented By: MAU Vitamin D (Cholecalciferol (Vitamin D3) 10 Mcg Tablet) 10 mcg PO DAILY [facility] Last Admin: 09/13/24 08:18 Dose: 10 mcg Documented By: MAU Labs 09/12/24 06:26 09/13/24 06:15 Labs: Laboratory Results - last 24 hr 09/12/24 09/13/24 16:56 06:15 Hold Purple Top SEE NOTE Estim Creat Clear Calc 96.4 Estimated GFR > 60 Random Vancomycin 15.7 Microbiology Microbiology Results: Microbiology 09/11/24 01:54 Gram Stain - Final Foot Left Routine Culture - Final 09/11/24 01:10 Blood Culture - Preliminary Blood - Venous No growth after 48 hours. 09/11/24 01:09 Blood Culture - Preliminary Blood - Venous No growth after 48 hours. Procedures Date of Service Date of Service: 09/13/24 Progress Note: A&P Assessment and plan (1) Bullous impetigo: Status: Acute Assessment and Plan: I have bluntly debrided residual bolus changes to drain clear fluid I applied dry dressings and wrapped the foot with Cookie roll Continue wound care Etiology uncertain Time Spent With Patient Time: Total time managing care of this patient today ____ minutes. Quality Stroke Does the patient have a stroke diagnosis?: No VTE Prior VTE?: No VTE Risk Level:: Medical - moderate - high VTE Device Contraindication: Treatment Not Indicated VTE Drug Contraindication: N/A - Med Ordered
--- NOTE | 2024-09-13 15:36 | HO.PM.IMPN ---
Subjective Subjective Date of Service: 09/13/24 Interval History: Seen and evaluated by General surgery yesterday with bedside debridement Some ?soreness? in foot s/p debridement, but no noreen pain Was just seen by Dr. Piña who redressed wound No fever, chills Pt otherwise reports feeling quite well Review of Systems Denies shortness or breath or difficulty breathing No chest pain/pressure, palpitations Denies numbness or tingling in feet Review of Systems: Yes all other systems are reviewed and are negative Physical Exam Vital Signs: Vital Signs: Last Vital Signs Temp 98.1 F 09/13/24 11:40 Pulse 79 09/13/24 11:40 Resp 18 09/13/24 11:40 BP 117/72 09/13/24 11:40 Pulse Ox 98 09/13/24 11:40 O2 Del Method Room Air 09/13/24 11:40 BMI result Body Mass Index 32.3 General: AOx3, no acute distress Resp: CTA bilaterally CVS: S1, S2, RRR GI: +BS, NT, no distention Skin: Warm, dry Neuro: Cranial nerves II-XII grossly intact bilaterally. Motor grossly intact bilaterally Extremities: Physical exam of foot deferred as pt was just seen by general surgery who re-dressed wound. Will defer to their note for physical description Psych: Appropriate affect Objective Data Active Medications Acetaminophen (Acetaminophen 325 Mg Tablet) 650 mg PO Q6H PRN PRN Reason: Pain, Mild 1-3,fever,headache Ascorbic Acid (Ascorbic Acid 500 Mg Tablet) 500 mg PO BID [facility] Last Admin: 09/13/24 08:18 Dose: 500 mg Documented By: MAU Calcium Carbonate (Calcium Carbonate 750 Mg Tab.Chew) 750 mg PO Q4H PRN PRN Reason: Heartburn Enoxaparin Sodium (Enoxaparin Sodium 40 Mg/0.4 Ml Syringe) 40 mg SUBCUT Q24H [facility] Last Admin: 09/13/24 03:29 Dose: 40 mg Documented By: CASTILMadi Hydrochlorothiazide (Hydrochlorothiazide 25 Mg Tablet) 25 mg PO DAILY [facility]; Protocol Last Admin: 09/13/24 08:18 Dose: 25 mg Documented By: MAU Metronidazole (Flagyl) 500 mg in 100 mls @ 100 mls/hr IV Q8H [facility] Last Infusion: 09/13/24 15:08 Dose: Infused Documented By: MAU Cefepime HCl (Maxipime) 2 gm in 50 mls @ 100 mls/hr IV Q8H [facility] Last Admin: 09/13/24 15:05 Dose: 100 mls/hr Documented By: MAU Vancomycin HCl 1,250 mg/ (Sodium Chloride) 250 mls @ 166.667 mls/hr IV Q12H [facility] Last Infusion: 09/13/24 08:19 Dose: Infused Documented By: MAU Magnesium Hydroxide (Milk Of Magnesia 30 Ml Oral.Susp) 30 ml PO DAILY PRN PRN Reason: Constipation Melatonin (Melatonin 3 Mg Tablet) 6 mg PO BEDTIME PRN PRN Reason: Insomnia Metoprolol Tartrate (Metoprolol Tartrate 50 Mg Tablet) 50 mg PO BID [facility]; Protocol Last Admin: 09/13/24 08:18 Dose: 50 mg Documented By: MAU Ondansetron HCl (Ondansetron Hcl 4 Mg/2 Ml Vial) 4 mg IVPUSH Q8H PRN PRN Reason: Nausea and Vomiting Pharmacy Consult (Consult Rx Vancomycin Dosing) 1 each MISCELLANE DAILY PRN PRN Reason: Consult order Pyridoxine HCl (Pyridoxine Hcl (Vitamin B6) 50 Mg Tablet) 25 mg PO DAILY [facility] Last Admin: 09/13/24 08:17 Dose: 25 mg Documented By: MAU Sodium Chloride (0.9 % Sodium Chloride Flush 3 Ml Syringe) 3 ml IVFLUSH QSHIFT [facility] Last Admin: 09/13/24 15:08 Dose: 3 ml Documented By: MAU Vitamin D (Cholecalciferol (Vitamin D3) 10 Mcg Tablet) 10 mcg PO DAILY [facility] Last Admin: 09/13/24 08:18 Dose: 10 mcg Documented By: MAU Labs 09/12/24 06:26 09/13/24 06:15 Labs: Laboratory Results - last 24 hr 09/12/24 09/13/24 16:56 06:15 Hold Purple Top SEE NOTE Estim Creat Clear Calc 96.4 Estimated GFR > 60 Random Vancomycin 15.7 Microbiology Microbiology Results: Microbiology 09/11/24 01:54 Gram Stain - Final Foot Left Routine Culture - Final 09/11/24 01:10 Blood Culture - Preliminary Blood - Venous No growth after 48 hours. 09/11/24 01:09 Blood Culture - Preliminary Blood - Venous No growth after 48 hours. Assessment and Plan (1) Cellulitis of left foot: Status: Acute (2) Bullous impetigo: Status: Acute Plan This is a 64-year-old female with pertinent history of hypertension, MAR on CPAP, bed-bound, obesity presents to the emergency department for concerns of left foot infection. Bullous impetigo Initially treated with cefepime, vanc, and metronidazole x3 days Will dc metronidazole No sepsis Seen by General surgery who did bedside debridement on 09/12 Wound care consult HTN Continue hydrochlorothiazide, metoprolol MAR Continue CPAP at night Obesity class 3 Encourage weight loss Pt will required continued hospital stay for IV antibiotics and specialist consultation with Wound Care and General surgery, and for evaluation of s/p debridement. Quality Stroke Does the patient have a stroke diagnosis?: No VTE Prior VTE?: No VTE Risk Level:: Medical - moderate - high VTE Device Contraindication: Treatment Not Indicated VTE Drug Contraindication: N/A - Med Ordered
[2024-09-13 16:21] LABS: Vancomycin Random 19.6 mcg/mL (15-20)
--- NOTE | 2024-09-13 16:33 | HE.PHANOTE ---
VANCOMYCIN ADDENDUM LEVEL 19.6, REDUCED TO 1 GRAM Q12 HOURS, REPEAT LEVEL BK
[2024-09-13] MEDS: vancomycin HCL 1,000 MG in 0.9 % Sodium Chloride 250 ML 270 MG IV (17:23)
[2024-09-14 03:16] VITALS: BP 132/68; PULSE 94; RESP 18; TEMP 36.3; O2SAT 96
[2024-09-14] MEDS: vancomycin HCL 1,000 MG in 0.9 % Sodium Chloride 250 ML 270 MG IV (05:04)
[2024-09-14] MEDS: Enoxaparin Sodium 40 MG/0.4 ML SYRINGE SUBCUT (05:09)
[2024-09-14 06:19] LABS: Creatinine Clr Calc Pharmacy 107.8; Estimated Glomerular Filt Rate > 60
[2024-09-14] MEDS: cefEPime HCl/D5W 2 GM/50 ML PIGGYBACK IV ×3 (07:50→23:15)
[2024-09-14] MEDS: 0.9 % Sodium Chloride Flush 3 ML SYRINGE IVFLUSH ×3 (07:50→20:15)
[2024-09-14 07:58] VITALS: BP 111/55; PULSE 80; RESP 16; TEMP 36.2; O2SAT 98
[2024-09-14] MEDS: Cholecalciferol (Vitamin D3) 10 MCG TABLET PO (08:17)
[2024-09-14] MEDS: Metoprolol Tartrate 50 MG TABLET PO ×2 (08:17→20:15)
[2024-09-14] MEDS: hydroCHLOROthiazide 25 MG TABLET PO (08:17)
[2024-09-14] MEDS: Pyridoxine HCl (Vitamin B6) 50 MG TABLET 25 MG PO (08:18)
[2024-09-14] MEDS: Ascorbic Acid 500 MG TABLET PO ×2 (08:18→20:15)
--- NOTE | 2024-09-14 10:18 | PM.PNGS ---
Subjective Subjective Date of Service: 09/14/24 <Tony Pinedo PA-C - Last Filed: 09/14/24 12:48> 09/14/24 <Morris Piña MD - Last Filed: 09/14/24 13:28> Patient reports: no new complaints and pain is less <ALEXANDRO Barnett Last Filed: 09/14/24 12:48> Interval history: Patient reports she is doing better today. She denies any pain in her foot at this time. She states the swelling has improved. The wound continues to drain large amounts of fluid, dressing has been changed multiple times in the past day. Denies fever/chills. She is tolerating diet well <ALEXANDRO Barnett Last Filed: 09/14/24 12:48> Physical Exam Vital Signs: Vital Signs: Last Vital Signs Temp 97.2 F 09/14/24 07:58 Pulse 80 09/14/24 07:58 Resp 16 09/14/24 07:58 BP 111/55 L 09/14/24 07:58 Pulse Ox 98 09/14/24 07:58 O2 Del Method Room Air 09/14/24 07:58 BMI result Body Mass Index 32.3 <Tony Pinedo PA-C - Last Filed: 09/14/24 12:48> Const: General: comfortable and no acute distress <ALEXANDRO Barnett Last Filed: 09/14/24 12:48> Orientation/consciousness: patient oriented x3 <Tony Pinedo PA-C - Last Filed: 09/14/24 12:48> Resp: Effort & Inspection: normal respiratory effort and able to speak in complete sentences <ALEXANDRO Barnett Last Filed: 09/14/24 12:48> Neuro: General: patient oriented x3 <ALEXANDRO Barnett Last Filed: 09/14/24 12:48> Extrem: Other: Left foot dressing in place, saturated with clear yellow, serous fluid. Dressings were removed. Wound continues to weep. 1+ pitting edema. Sensation in the toes intact <ALEXANDRO Barnett Last Filed: 09/14/24 12:48> Left lower extremity: edema <ALEXANDRO Barnett Last Filed: 09/14/24 12:48> Objective Data Active Medications Acetaminophen (Acetaminophen 325 Mg Tablet) 650 mg PO Q6H PRN PRN Reason: Pain, Mild 1-3,fever,headache Ascorbic Acid (Ascorbic Acid 500 Mg Tablet) 500 mg PO BID [facility] Last Admin: 09/14/24 08:18 Dose: 500 mg Documented By: MAU Calcium Carbonate (Calcium Carbonate 750 Mg Tab.Chew) 750 mg PO Q4H PRN PRN Reason: Heartburn Enoxaparin Sodium (Enoxaparin Sodium 40 Mg/0.4 Ml Syringe) 40 mg SUBCUT Q24H [facility] Last Admin: 09/14/24 05:09 Dose: 40 mg Documented By: ROSANNA Hydrochlorothiazide (Hydrochlorothiazide 25 Mg Tablet) 25 mg PO DAILY [facility]; Protocol Last Admin: 09/14/24 08:17 Dose: 25 mg Documented By: MAU Cefepime HCl (Maxipime) 2 gm in 50 mls @ 100 mls/hr IV Q8H [facility] Last Infusion: 09/14/24 08:21 Dose: Infused Documented By: MAU Vancomycin HCl 1,000 mg/ (Sodium Chloride) 270 mls @ 270 mls/hr IV Q12H [facility] Last Infusion: 09/14/24 06:12 Dose: Infused Documented By: ROSANNA Magnesium Hydroxide (Milk Of Magnesia 30 Ml Oral.Susp) 30 ml PO DAILY PRN PRN Reason: Constipation Melatonin (Melatonin 3 Mg Tablet) 6 mg PO BEDTIME PRN PRN Reason: Insomnia Metoprolol Tartrate (Metoprolol Tartrate 50 Mg Tablet) 50 mg PO BID [facility]; Protocol Last Admin: 09/14/24 08:17 Dose: 50 mg Documented By: MAU Ondansetron HCl (Ondansetron Hcl 4 Mg/2 Ml Vial) 4 mg IVPUSH Q8H PRN PRN Reason: Nausea and Vomiting Pharmacy Consult (Consult Rx Vancomycin Dosing) 1 each MISCELLANE DAILY PRN PRN Reason: Consult order Pyridoxine HCl (Pyridoxine Hcl (Vitamin B6) 50 Mg Tablet) 25 mg PO DAILY [facility] Last Admin: 09/14/24 08:18 Dose: 25 mg Documented By: MAU Sodium Chloride (0.9 % Sodium Chloride Flush 3 Ml Syringe) 3 ml IVFLUSH QSHIFT [facility] Last Admin: 09/14/24 07:50 Dose: 3 ml Documented By: MAU Vitamin D (Cholecalciferol (Vitamin D3) 10 Mcg Tablet) 10 mcg PO DAILY [facility] Last Admin: 09/14/24 08:17 Dose: 10 mcg Documented By: MAU <Tony Pinedo PA-C - Last Filed: 09/14/24 12:48> Labs CBC & Chem 7: 09/12/24 06:26 09/14/24 05:34 <Tony Pinedo PA-C - Last Filed: 09/14/24 12:48> Labs: Laboratory Results - last 24 hr 09/13/24 09/14/24 15:55 05:34 Estim Creat Clear Calc 107.8 Estimated GFR > 60 Random Vancomycin 19.6 <Tony Pinedo PA-C - Last Filed: 09/14/24 12:48> Microbiology Microbiology Results: Microbiology 09/11/24 01:54 Gram Stain - Final Foot Left Routine Culture - Final <Tony Pinedo PA-C - Last Filed: 09/14/24 12:48> Procedures Date of Service Date of Service: 09/14/24 <Tony Pinedo PA-C - Last Filed: 09/14/24 12:48> 09/14/24 <Morris Piña MD - Last Filed: 09/14/24 13:28> Progress Note: A&P Assessment and plan (1) Bullous impetigo: Status: Acute <Tony Pinedo PA-C - Last Filed: 09/14/24 12:48> Assessment and Plan: Continue wound care No new complaints Dressing changes as needed Edema has improved Seen and examined independently <Morris Piña MD - Last Filed: 09/14/24 13:28> Assessment and Plan: 64-year-old female being followed for bullous impetigo. Patient reports some improvement today. Pain is significantly less, swelling has decreased. She is afebrile. Tolerating diet. Passing BM. Flagyl was discontinued yesterday per hospital medicine, she remains on cefepime and vancomycin. Bedside debridement of blisters was performed on 09/12. On exam edema of the foot has improved slightly, she still has 1+ pitting edema up to the level of the malleolus. The wound continues to weep large amounts of serous fluid. It is largely nontender to palpation, sensation in the toes remains intact. No evidence of necrotic tissue at this time. The wound was redressed with Xeroform, gauze and wrapped with Kerlix. Continue IV antibiotics Dressing changes as needed, at least daily, likely sooner due to how fast she is saturating dressings Continue with diet, recommend adequate hydration Wound consult pending We will continue to follow <Tony Pinedo PA-C - Last Filed: 09/14/24 12:48> Time Spent With Patient Time: Total time managing care of this patient today __30__ minutes. <Tony Pinedo PA-C - Last Filed: 09/14/24 12:48> Quality Stroke Does the patient have a stroke diagnosis?: No <Tony Pinedo PA-C - Last Filed: 09/14/24 12:48> VTE Prior VTE?: No <Tony Pinedo PA-C - Last Filed: 09/14/24 12:48> VTE Risk Level:: Medical - moderate - high <Tony Pinedo PA-C - Last Filed: 09/14/24 12:48> VTE Device Contraindication: Treatment Not Indicated <Tony Pinedo PA-C - Last Filed: 09/14/24 12:48> VTE Drug Contraindication: N/A - Med Ordered <Tony Pinedo PA-C - Last Filed: 09/14/24 12:48>
[2024-09-14 11:23] VITALS: BP 109/57; PULSE 76; RESP 16; TEMP 36.7; O2SAT 96
--- NOTE | 2024-09-14 14:25 | HO.WOUND ---
Wound Consult: Initial 64yr old?[place] [facility] See progress notes and H&P for detailed history.? Wound consult placed for Left Foot.? Patient agreeable to assessment and photo documentation.? Chart review completed - patient has been seen and followed by General Surgery team with debridement and topical recommendations made for xeroform and dry gauze wrap. Per Dr. Marley would like my recommendations and teaching to be performed with family. Arrival to bedside patient was not aware of d/c today. She ultimately requested to have an additional day to take first does of new antibiotic. She is requesting VNA - I informed her since she did not have a PCP she would not be eligible to VNA per chart review. I discussed with her and her the easy of this wound it woud just come down to frequency. They report understanding. had to leave for work at the time of my consult. Direct care team or myself will be able to provide teaching for xeroform dressings at home. Dressing not removed at this time. Change earlier by surgery team. Recommendations: Left Foot - Cleanse with N moist gauze, pat dry. Apply skin prep to periwound. Cover open wound bed with xeroform, followed by dry gauze, wrap. Change daily or as needed for strike through drainage. Re-consult wound care Nurse for wound deterioration or wound changes.
[2024-09-14 15:43] VITALS: BP 118/59; PULSE 76; RESP 16; TEMP 36.7; O2SAT 97
[2024-09-14 16:32] LABS: Vancomycin Trough 19.6 mcg/mL (10.0-20.0)
--- NOTE | 2024-09-14 16:51 | HO.PM.IMPN ---
Subjective Subjective Date of Service: 09/14/24 Interval History: no fever, minimal foot pain, still lots of drainage from the foot wound Review of Systems Review of Systems: Yes all other systems are reviewed and are negative Physical Exam Vital Signs: Vital Signs: Last Vital Signs Temp 98.1 F 09/14/24 15:43 Pulse 76 09/14/24 15:43 Resp 16 09/14/24 15:43 BP 118/59 L 09/14/24 15:43 Pulse Ox 97 09/14/24 15:43 O2 Del Method Room Air 09/14/24 15:43 BMI result Body Mass Index 32.3 Gen: in no acute distress HEENT: sclera anicteric, moist mucus membranes Neck: supple Lungs: clear to auscultation bilaterally Heart: regular rate and rhythm, no murmurs Abd: soft, non-tender, non-distended Ext: no edema Skin: warm/well-perfused, L foot swollen with extensive lateral and plantar bullous wound with yellow serous fluid Neuro: alert and oriented x3, no focal findings Psych: appropriate affect Objective Data Active Medications Acetaminophen (Acetaminophen 325 Mg Tablet) 650 mg PO Q6H PRN PRN Reason: Pain, Mild 1-3,fever,headache Ascorbic Acid (Ascorbic Acid 500 Mg Tablet) 500 mg PO BID [facility] Last Admin: 09/14/24 08:18 Dose: 500 mg Documented By: MAU Calcium Carbonate (Calcium Carbonate 750 Mg Tab.Chew) 750 mg PO Q4H PRN PRN Reason: Heartburn Enoxaparin Sodium (Enoxaparin Sodium 40 Mg/0.4 Ml Syringe) 40 mg SUBCUT Q24H [facility] Last Admin: 09/14/24 05:09 Dose: 40 mg Documented By: ROSANNA Hydrochlorothiazide (Hydrochlorothiazide 25 Mg Tablet) 25 mg PO DAILY [facility]; Protocol Last Admin: 09/14/24 08:17 Dose: 25 mg Documented By: MAU Cefepime HCl (Maxipime) 2 gm in 50 mls @ 100 mls/hr IV Q8H [facility] Last Infusion: 09/14/24 16:13 Dose: Infused Documented By: AKBAR Vancomycin HCl 1,000 mg/ (Sodium Chloride) 270 mls @ 270 mls/hr IV Q12H [facility] Last Infusion: 09/14/24 06:12 Dose: Infused Documented By: ROSANNA Magnesium Hydroxide (Milk Of Magnesia 30 Ml Oral.Susp) 30 ml PO DAILY PRN PRN Reason: Constipation Melatonin (Melatonin 3 Mg Tablet) 6 mg PO BEDTIME PRN PRN Reason: Insomnia Metoprolol Tartrate (Metoprolol Tartrate 50 Mg Tablet) 50 mg PO BID [facility]; Protocol Last Admin: 09/14/24 08:17 Dose: 50 mg Documented By: MAU Ondansetron HCl (Ondansetron Hcl 4 Mg/2 Ml Vial) 4 mg IVPUSH Q8H PRN PRN Reason: Nausea and Vomiting Pharmacy Consult (Consult Rx Vancomycin Dosing) 1 each MISCELLANE DAILY PRN PRN Reason: Consult order Pyridoxine HCl (Pyridoxine Hcl (Vitamin B6) 50 Mg Tablet) 25 mg PO DAILY [facility] Last Admin: 09/14/24 08:18 Dose: 25 mg Documented By: MAU Sodium Chloride (0.9 % Sodium Chloride Flush 3 Ml Syringe) 3 ml IVFLUSH QSHIFT [facility] Last Admin: 09/14/24 15:34 Dose: 3 ml Documented By: AKBAR Vitamin D (Cholecalciferol (Vitamin D3) 10 Mcg Tablet) 10 mcg PO DAILY [facility] Last Admin: 09/14/24 08:17 Dose: 10 mcg Documented By: MAU Labs 09/12/24 06:26 09/14/24 05:34 Labs: Laboratory Results - last 24 hr 09/14/24 09/14/24 05:34 15:46 Estim Creat Clear Calc 107.8 Estimated GFR > 60 Vancomycin Trough 19.6 Assessment and Plan (1) Cellulitis of left foot: Status: Acute (2) Bullous impetigo: Status: Acute Plan d4 for 64yo bed-bound F with HTN and MAR on CPAP admitted for L foot infection bullous impetigo - cefepime + vancomycin 09/11-, ID consult re PO antibiotics - Gen Surg following, bedside debridement done 09/12 - Wound Care consulted: Cleanse with N moist gauze, pat dry. Apply skin prep to periwound. Cover open wound bed with xeroform, followed by dry gauze, wrap. Change daily or as needed for strike through drainage. HTN - continue HCTZ + metoprolol tartrate MAR - CPAP at night VTE ppx - enoxaparin dispo - plan home with VNA In my clinical judgment, the patient requires continued inpatient hospitalization for the following reasons: IV ABX, wound care, expert consultation Total time managing care of this patient today: 35 minutes. Quality Stroke Does the patient have a stroke diagnosis?: No VTE Prior VTE?: No VTE Risk Level:: Medical - moderate - high VTE Device Contraindication: Treatment Not Indicated VTE Drug Contraindication: N/A - Med Ordered
--- NOTE | 2024-09-14 16:57 | HE.PHANOTE ---
RE: VANCO DOSING Trough came back as 19.6 mg/L which is supratherapeutic for skin infection indication. Dose is reduced to 750 mg q12h, next trough is scheduled for 09/15/24 @1600.
[2024-09-14] MEDS: vancomycin HCL 750 MG in 0.9 % Sodium Chloride 250 ML 265 MG IV (18:05)
[2024-09-14 19:28] VITALS: BP 117/64; PULSE 81; RESP 18; TEMP 36.7; O2SAT 98
[2024-09-14 23:03] VITALS: BP 130/74; PULSE 83; RESP 18; TEMP 36.5; O2SAT 97
[2024-09-15 04:00] VITALS: BP 114/59; PULSE 76; RESP 18; TEMP 36.5; O2SAT 98
[2024-09-15] MEDS: Enoxaparin Sodium 40 MG/0.4 ML SYRINGE SUBCUT (04:00)
[2024-09-15] MEDS: vancomycin HCL 750 MG in 0.9 % Sodium Chloride 250 ML 265 MG IV (05:45)
[2024-09-15 06:52] LABS: Creatinine Clr Calc Pharmacy 109.7; Estimated Glomerular Filt Rate > 60
[2024-09-15 07:59] VITALS: BP 112/64; PULSE 80; RESP 16; TEMP 36.9; O2SAT 98
[2024-09-15] MEDS: cefEPime HCl/D5W 2 GM/50 ML PIGGYBACK IV (08:16)
[2024-09-15] MEDS: Ascorbic Acid 500 MG TABLET PO (08:17)
[2024-09-15] MEDS: Pyridoxine HCl (Vitamin B6) 50 MG TABLET 25 MG PO (08:17)
[2024-09-15] MEDS: Metoprolol Tartrate 50 MG TABLET PO (08:17)
[2024-09-15] MEDS: 0.9 % Sodium Chloride Flush 3 ML SYRINGE IVFLUSH (08:17)
[2024-09-15] MEDS: hydroCHLOROthiazide 25 MG TABLET PO (08:17)
[2024-09-15] MEDS: Cholecalciferol (Vitamin D3) 10 MCG TABLET PO (08:17)
[2024-09-15 12:00] VITALS: BP 115/60; PULSE 80; RESP 18; TEMP 36.8; O2SAT 98
--- NOTE | 2024-09-15 12:14 | MHC.CM.PN ---
Per MD patient medically cleared for dc home w/ new [facility] for SN/ every other day wound care. Prior to dc wound RN will change dressing, teach , and provide supplies. [facility] will see patient 09/17. BLS transport scheduled for 5pm. RN, patient and aware. IMM delivered.
--- NOTE | 2024-09-15 14:53 | HO.WOUND ---
Wound Consult: Follow up 64yr old?female admitted to [facility] on 09/11/24- See progress notes and H&P for detailed history.? Wound consult placed for Left Foot.? Patient agreeable to assessment and photo documentation.? Patient nad present while eduction provided on how to perform dressing change and frequency. Provided s/s to report and when wound should be assessed. Patient has VNA set up and will perform dressing every other day while will change alternate days while daily dressing change is needed. Left Foot - Cleanse with saline moist gauze, pat dry. Apply triad barrier cream to periwound. Cover open wound bed with xeroform, followed by dry gauze, Optilock dressing and wrap. May complete with félix wrap. Change daily or as needed for strike through drainage. Elevate on pillows and float heel off of bed surface. Details from previous assessment: Chart review completed - patient has been seen and followed by General Surgery team with debridement and topical recommendations made for xeroform and dry gauze wrap. Per Dr. Marley would like my recommendations and teaching to be performed with family. Arrival to bedside patient was not aware of d/c today. She ultimately requested to have an additional day to take first does of new antibiotic. She is requesting VNA - I informed her since she did not have a PCP she would not be eligible to VNA per chart review. I discussed with her and her the easy of this wound it woud just come down to frequency. They report understanding. had to leave for work at the time of my consult. Direct care team or myself will be able to provide teaching for xeroform dressings at home. Dressing not removed at this time. Change earlier by surgery team. Recommendations: Left Foot - Cleanse with N moist gauze, pat dry. Apply skin prep to periwound. Cover open wound bed with xeroform, followed by dry gauze, wrap. Change daily or as needed for strike through drainage.
--- NOTE | 2024-09-15 15:42 | W.MHC.F2F ---
Service Date Service Date: 09/15/24 Encounter Date of encounter: 09/15/24 Reasons for Services Signs and symptoms assessed: wound care Reason for penitentiary: wound care MD Overseeing Care: Morris Cadrenas Homebound: Leaving the home is medically contraindicated at this time without the asist of a device and/or another person due th the listed conditions above and below. Reason homebound: bedbound/chairbound Homebound supporting statement: Wound care L foot: Cleanse with N moist gauze, pat dry. Apply skin prep to periwound. Cover open wound bed with xeroform, followed by dry gauze, wrap. Change daily or as needed for strike through drainage. Use Optilock non-adhesive super absorbent wound dressing if drainage soaks through dressing more than once daily Certification: Based on the above findings, I certify that this patient is confined to the home and needs intermittent penitentiary care, physical therapy and/or speech therapy, or continues to need occupational therapy. The patient is under my care, and I have initiated the establishment of the plan of care. The patient will be followed by a physician who will periodically review the plan of care. Time Spent With Patient Time: Total time managing care of this patient today ____ minutes.
[2024-09-15] MEDS: Clindamycin HCL 300 MG CAPSULE PO (15:57)
--- NOTE | 2024-09-15 16:34 | P.DS_ITS ---
DS: Providers Provider Date of Service: 09/15/24 Date of admission: 09/11/24 03:41 Date of discharge: 09/15/24 Primary care physician: Morris Cardenas MD Consults: 09/12/24 08:08 Consult to Wound Care Routine Reason for consultation: Right heel wound with large bullae over most of foot 09/12/24 10:56 Consult to General Surgery Routine Consulting Provider: [facility] General Surgeons Reason for consultation: Left foot cellulitis with significant bullae 09/15/24 15:18 Consult to Infectious Diseases Routine Consulting Provider: [facility] Reason for consultation: impetigo DS: Diagnosis Discharge Diagnosis (1) Cellulitis of left foot: Status: Acute (2) Bullous impetigo: Status: Acute DS: Summary Hospital Course Hospital Course: From the history and physical by the admitting hospitalist, Daly Finn MD, 09/11/24: This is a 64-year-old female with pertinent history of hypertension, MAR on CPAP, bed-bound, obesity presents to the emergency department for concerns of left foot infection. Patient states she noticed a blister to the plantar aspect of left foot 4 days prior to presentation. It has spread to the entire left foot and then ruptured. Patient noticed her left foot has become more erythematous and warmth which has been progressive. No history of skin infections in the past. No preceding event as per the patient. She denies any systemic complaints including fever, chills, nausea or vomiting. No chest pain, palpitations, shortness of breath, abdominal pain, changes in urinary or bowel habits. Patient has been bed-bound since 2007. In the emergency department, patient was given empiric IV antibiotics. 64yo bed-bound F with HTN and MAR on CPAP admitted to the medical-surgical unit for L foot infection without sepsis. Infection appeared to be a type of bullous impetigo. She was treated with cefepime and vancomycin for 4 days. General Surgery was consulted and did a bedside debridement of the bullae on 09/12. She improved and was discharged on 7 days of clindamycin with VNA services for wound care. Per wound care transitions manager, instructed family to cleanse with moist gauze then pat dry. Apply skin prep to periwound. Cover open wound bed with xeroform, followed by dry gauze, wrap. Change daily or as needed for strike through drainage. Use Optilock non-adhesive super absorbent wound dressing if drainage soaks through dressing more than once daily. Time Attestation Discharge Coordination Time (in mins): 50 Quality: Safe Use of Opioids Does Pt have an Active Cancer Diagnosis on the Problem List?: No Quality: Stroke Does the patient have a stroke diagnosis?: No Physical Exam Vital Signs: Vital Signs: Last Vital Signs Temp 98.3 F 09/15/24 12:00 Pulse 80 09/15/24 12:00 Resp 18 09/15/24 12:00 BP 115/60 09/15/24 12:00 Pulse Ox 98 09/15/24 12:00 O2 Del Method Room Air 09/15/24 12:00 BMI result Body Mass Index 32.3 Gen: in no acute distress HEENT: sclera anicteric, moist mucus membranes Neck: supple Lungs: clear to auscultation bilaterally Heart: regular rate and rhythm, no murmurs Abd: soft, non-tender, non-distended Ext: no edema Skin: warm/well-perfused, L foot with extensive lateral and plantar bullous wound with yellow serous fluid without any purulence and minimal erythema Neuro: alert and oriented x3, no focal findings Psych: appropriate affect DS: Data Data Completed and Pending Completed studies during hospitalization [Text1]: Laboratory Results WBC 9.2 X10*3/uL (4.8-10.8) 09/12/24 06:26 RBC 4.31 X10*6/uL (4.20-5.50) 09/12/24 06:26 Hgb 13.5 g/dl (12.0-16.0) 09/12/24 06:26 Hct 38.9 % (37.0-47.0) 09/12/24 06:26 MCV 90.3 fL (80.0-98.0) 09/12/24 06:26 MCH 31.3 pg (27.0-33.0) 09/12/24 06:26 MCHC 34.7 g/dl (31.0-35.0) 09/12/24 06:26 RDW 13.8 % (11.0-16.0) 09/12/24 06:26 Plt Count 265 X10*3/uL (160-400) 09/12/24 06:26 MPV 8.5 fL (9.4-12.3) L 09/12/24 06: Immature Gran % (Auto) 0.2 % (0.0-0.4) 09/12/24 06: Neut % (Auto) 69.6 % (45-73) 09/12/24 06: Lymph % (Auto) 20.2 % (20-40) 09/12/24 06:26 Churchill % (Auto) 7.2 % (2-11) 09/12/24 06: Eos % (Auto) 2.5 % (0-4) 09/12/24 06: Baso % (Auto) 0.3 % (0-2) 09/12/24 06: Lymph # (Auto) 1.9 X10*3/uL (1.2-4.9) 09/12/24 06: Churchill # (Auto) 0.7 X10*3/uL (0.1-1.2) 09/12/24 06: Eos # (Auto) 0.2 X10*3/uL (0.0-0.4) 09/12/24 06: Baso # (Auto) 0.0 X10*3/uL (0.0-0.2) 09/12/24 06: Abs Immat Gran (auto) 0.02 X10*3/uL (0.00-0.03) 09/12/24 06: Absolute Neuts (auto) 6.4 x10*3/uL (2.0-8.3) 09/12/24 06: Absolute Nucleated RBC 0.000 X10*3/uL (0.0-0.012) 09/12/24 06: Nucleated RBC % (auto) 0.0 /100WBC (0.0-0.2) 09/12/24 06: ESR 75 MM/HR (0-20) H 09/11/24 01:09 Hold Purple Top SEE NOTE 09/15/24 06:12 Sodium 138 mmol/L (135-145) 09/12/24 06:26 Potassium 3.6 mmol/L (3.3-5.1) 09/12/24 06: Chloride 103 mmol/L (96-108) 09/12/24 06:26 Carbon Dioxide 25 mmol/L (22-29) 09/12/24 06:26 Anion Gap 14 (12-20) 09/12/24 06:26 BUN 12 mg/dL (9-16) 09/12/24 06:26 Creatinine 0.58 mg/dL (0.5-1.4) 09/15/24 06:12 Estim Creat Clear Calc 109.7 09/15/24 06:12 Estimated GFR > 60 09/15/24 06:12 Random Glucose 155 mg/dL (60-115) H 09/12/24 06:26 Lactic Acid 1.3 mmol/L (0.5-2.0) 09/11/24 01:09 Calcium 8.5 mg/dL (8.4-10.2) 09/12/24 06:26 Total Bilirubin 0.4 mg/dL (0.0-1.0) 09/11/24 02:33 AST 19 U/L (5-31) 09/11/24 02:33 ALT 10 U/L (0-31) 09/11/24 02:33 Alkaline Phosphatase 88 U/L (39-117) 09/11/24 02:33 C-Reactive Protein 1.04 mg/dL (< or = 0.50) H 09/11/24 02:33 Total Protein 7.4 g/dL (6.5-8.0) 09/11/24 02:33 Albumin 3.0 g/dL (3.5-5.0) L 09/11/24 02:33 Vancomycin Trough 19.6 mcg/mL (10.0-20.0) 09/14/24 15:46 Random Vancomycin 19.6 mcg/mL (15-20) 09/13/24 15:55 Discharge Plan Discharge Anticipated Discharge Date/Time: 09/15/24 15:45 Patient Disposition: Home Health Service Discharge Diagnosis: left foot cellulitis/impetigo Referrals: Martha HOLLINS [Outside] - 3-5 Days (Martha HOLLINS will call you to schedule a visit for Sunday 09/17) Morris Cardenas MD [Primary Care Provider] - 1 Week (Call your doctors office to pick your new provider, as discussed) Discharge Medications: New clindamycin HCl 300 mg Capsule 300 mg PO Q8H Qty: 21 0RF Continued metoprolol tartrate 50 mg Tablet 50 mg PO BID hydrochlorothiazide 25 mg Tablet 25 mg PO DAILY cholecalciferol (vitamin D3) [Vitamin D3] 10 mcg (400 unit) Capsule 10 mcg PO DAILY pyridoxine (vitamin B6) [Vitamin B-6] 25 mg Tablet 25 mg PO DAILY Acidophilus Capsule 0 mg PO DAILY ascorbic acid (vitamin C) 500 mg Tablet 500 mg PO BID vitamin E 268 mg (400 unit) Capsule 0 mg PO DAILY ferrous gluconate 325 mg (37 mg iron) Tablet 0 mg Discharge Orders: Discharge Order (Routine); Ordered 09/15/24 Ordered By: Estuardo Marley Diet: Advance to usual diet Activity on Discharge: As tolerated Stand Alone Forms: Patient Portal Discharge page Print Language: Guamanian Activity Restrictions/Additional Instructions: Wound care L foot: Cleanse with N moist gauze, pat dry. Apply skin prep to periwound. Cover open wound bed with xeroform, followed by dry gauze, wrap. Change daily or as needed for strike through drainage. Use Optilock non-adhesive super absorbent wound dressing if drainage soaks through dressing more than once daily Care Plan Goals: cure of infection Health Concerns: left foot cellulitis/impetigo Plan of Treatment: clindamycin 300 mg 3x a day for 7 days wound care as above Please follow up with your primary care doctor within 1 week. Return to the hospital if you experience recurrent or worsening symptoms. Assessment: See Discharge Summary.
[2024-09-15 17:45] VITALS: BP 109/60; PULSE 82; RESP 18; TEMP 36.8; O2SAT 98
== END 2024-09-15 17:49 | disposition home health service (06) | DRG 603 ==
LOC: HO.ED 09-11 01:12 → HO.EDOVER 09-11 03:43 → HO.S3 09-11 07:40
PROVIDERS: Hospitalist; Student in an Organized Health Care Education/Training Program; Admitting Provider Student in an Organized Health Care Education/Training Program; Emergency Provider Emergency Medicine Emergency Medical Services; PCP Internal Medicine; Visit Provider Family Medicine
DX: L01.03 Bullous impetigo (principal); L03.116 Cellulitis of left lower limb; G47.33 Obstructive sleep apnea (adult) (pediatric); R73.03 Prediabetes; I10 Essential (primary) hypertension; E66.813 Obesity, class 3; Z68.32 Body mass index [BMI] 32.0-32.9, adult; Z71.3 Dietary counseling and surveillance; Z88.0 Allergy status to penicillin; Z74.01 Bed confinement status; Z79.899 Other long term (current) drug therapy
CPT/HCPCS: 36415; 73630; 80048; 80053; 80202; 82565; 83605; 85025; 85652; 86140; 87040; 87070; 87205; 99285; J0690; J0692; J1650; J1836; J3370; J3371

== ENCOUNTER 2024-09-11 03:41 | Outpatient (BNV) | payer MEDICARE, MEDICAID, SELFPAY | END 2024-09-11 04:42 | PROVIDERS: Admitting Provider Student in an Organized Health Care Education/Training Program; Emergency Provider Emergency Medicine Emergency Medical Services; PCP Internal Medicine; Visit Provider Specialist | DX: L02.612 Cutaneous abscess of left foot (principal) | CPT/HCPCS: 73630 ==

== ENCOUNTER → 2024-09-11 03:41 | Outpatient (BNV) | payer MEDICARE, MEDICAID, SELFPAY | PROVIDERS: Admitting Provider Student in an Organized Health Care Education/Training Program; Emergency Provider Emergency Medicine Emergency Medical Services; PCP Internal Medicine; Visit Provider Surgery | DX: L01.03 Bullous impetigo (principal) | CPT/HCPCS: 97597; 99221; 99231; 99232 ==

== ENCOUNTER → 2024-09-11 03:41 | Outpatient (BNV) | payer MEDICARE, MEDICAID, SELFPAY | PROVIDERS: Admitting Provider Student in an Organized Health Care Education/Training Program; Emergency Provider Emergency Medicine Emergency Medical Services; PCP Internal Medicine; Visit Provider Student in an Organized Health Care Education/Training Program | DX: L03.116 Cellulitis of left lower limb (principal) | CPT/HCPCS: 99222; 99232; 99499 ==

== ENCOUNTER 2024-10-06 10:56 | Outpatient (AMB) | payer MEDICARE, MEDICAID, SELFPAY ==
--- NOTE | 2024-10-06 09:34 | A.OFFPC_ITS ---
Intake Visit Reasons: Telehealth - see comments [employer] Required: No Accompanied by: Spouse Allergies clarithromycin (From Biaxin) Allergy (Unknown, Verified 10/06/24 12:58) doxycycline (Doxycycline) Allergy (Unknown, Verified 10/06/24 12:58) Penicillins Allergy (Unknown, Verified 10/06/24 12:58) From Keflex Allergy (Unknown, Uncoded 10/06/24 12:58) Medication List - Last Reconciled 10/06/24 by Pablo Griffiths MD ascorbic acid (vitamin C) 500 mg PO BID cholecalciferol (vitamin D3) (Vitamin D3) 10 mcg PO DAILY ferrous gluconate 0 mg hydrochlorothiazide 25 mg PO DAILY Lactobacillus acidophilus (Acidophilus capsule) 0 mg PO DAILY metoprolol tartrate 50 mg PO BID pyridoxine (vitamin B6) (Vitamin B-6) 25 mg PO DAILY vitamin E 0 mg PO DAILY Tobacco use date assessed: 10/06/24 Fall risk assessment: No Falls in past year Last assessed Fall Risk: 10/06/24 Dental Screening Dental Screen Date: 10/06/24 Did you have a dental visit in the last 12 months?: Yes Did you have a dental problem in the last 6 months where you did not have access to dental care?: No HPI Telehealth - see comments HPI Details 64-year-old female wishes to discuss her medical health via tele health. Patient was seeing Dr. Cardenas in the past and he would visit her at her home annually. She weighs more than 400 lb and is homebound. Recently she had to be admitted to the hospital for cellulitis in the left foot. With adequate antibiotics, the wound is healing. She has VNA services that come to her home 3 days a week and her cleans the wound on the other days. Patient can not ambulate because of her excessive weight. In the hospital she was getting injections for DVT prophylaxis. [facility] Medical History (Updated 10/06/24 @ 13:00 by Pablo Griffiths MD) Obesity (BMI 30-39.9) Obstructive sleep apnea Hypertension Social History Household Members: Spouse Housing: House Do you presently have visiting nurse or other home services: No (previously had with help w/ ADLs) Patient Tobacco Use Status: Never used Tobacco e-Cigarette/Vaping Use: Never Used Second Hand Smoke Exposure: No service: No Current occupational status: retired Cognitive needs: No Hearing needs: No Vision needs: No Questionnaire PHQ-9 Over the last 2 weeks, how often have you been bothered by any of the following problems? 1. Little interest or pleasure in doing things: not at all 2. Feeling down, depressed, or hopeless: not at all 3. Trouble falling or staying asleep, or sleeping too much: not at all 4. Feeling tired or having little energy: not at all 5. Poor appetite or overeating: not at all 6. Feeling bad about yourself - or that you are a failure or have let yourself or your family down: not at all 7. Trouble concentrating on things, such as reading the newspaper or watching television: not at all 8. Moving or speaking so slowly that other people could have noticed. Or the opposite - being so fidgety or restless that you have been moving around a lot more than usual: not at all 9. Thoughts that you would be better off or of hurting yourself in some way: not at all Total score: 0 Source: Developed by Drs. Ortiz Williamson, Ashleigh Brenner, Reggie Saul and colleagues, with an educational dominik from [employer]. Thrive Questionnaire Date Thrive assessed: 10/06/24 I am a: Patient Within the past 12 months, did the food you bought not last and you didn't have the money to get more?: Never true Within the past 12 months, did you worry whether your food would run out before you got money to buy more?: Never true Do you have trouble paying for medicines?: No Do you have trouble getting transportation to medical appointments?: No Do you have trouble paying your heating and electricity bill?: No Do you have trouble taking care of your child, family member or friend?: No Do you have trouble with day-to-day activities such as bathing, preparing meals, shopping, managing finances, etc.?: No Are you currently unemployed and looking for a job?: No Are you interested in more education?: No THRIVE Score: 0 AUDIT C Alcohol Use Questionnaire (AUDIT-C) 1. How often do you have a drink containing alcohol?: Never 3. How often do you have six or more drinks on one occasion?: Never Total Score: 0 CHAO-7 AMB Questionnaire CHAO-7 Date CHAO - 7 assessed: 10/06/24 Feeling nervous, anxious, or on edge: 0 = Not at all Not being able to stop or control worryin = Not at all Worrying too much about different things: 0 = Not at all Trouble relaxin = Not at all Being so restless that it is hard to sit still: 0 = Not at all Becoming easily annoyed or irritable: 0 = Not at all Feeling afraid as if something awful might happen: 0 = Not at all Total CHAO-7 score (0-4 normal; 5-9 mild; 10-14 moderate; 15-21 severe): 0 Source: Developed by Drs. Ortiz Williamson, Ashleigh Brenner, Reggie Saul and colleagues, with an educational dominik from [place]. Physical exam (Primary Care) Tobacco/Smoking Status: Tobacco use Status Tobacco use date assessed 10/06/24 10/06/24 09:35 Patient Tobacco Use Status Never used Tobacco 10/06/24 09:35 e-Cigarette/Vaping Use Never Used 10/06/24 09:35 PHQ-9: PHQ-9 Score PHQ-9: Total score 0 10/06/24 11:26 Thrive Assessment: Date of Thrive Assessment Date Thrive assessed 10/06/24 10/06/24 09:35 Telehealth Telehealth Telehealth Platform: [facility] Location of provider rendering services: practice address Location of patient: address on file Patient Identification confirmed using: Name, : Yes Telehealth method: voice only Patient verbally consented to treatment: Yes Patient verbally consented to billing insurance company: Yes Patient informed of any privacy concerns related to visit: Yes Minutes spent on Phone/Video with Pt.: 20 Coding Level of Care Code Tele New Pt Level 4 (64472) Complex EM visit Add On G2211 Diagnoses Hypertension I10 Assessment & Plan Assessment & Plan (1) Hypertension: Code(s): I10 - Essential (primary) hypertension Category: Medical Plan: Blood pressure is in range. Plan I encouraged patient to continue getting the VNA visits and her wound cleaned appropriately. She should be on DVT prophylaxis, however patient declines and understands the risk. Has completed the antibiotic course. Orders: Orders Basic Metabolic Panel Today I10 - Essential (primary) hypertension Complete Blood Count no Diff Today I10 - Essential (primary) hypertension Lipid Panel Today I10 - Essential (primary) hypertension Liver Panel Today I10 - Essential (primary) hypertension Hemoglobin A1c Today I10 - Essential (primary) hypertension Thyroid Stimulating Hormone Today I10 - Essential (primary) hypertension Medications: Discontinued clindamycin HCl Discontinued Reason: Patient Completed Course 300 mg PO Q8H 21 caps 0RF
--- OUTSIDE RECORDS SUMMARY | 2024-10-06 12:35 | XMS_ITS | Data Portability ---
Author Organization [place] - [facility] Address [address] [place] [id number] Care Team Providers Care Drip Pumper Name Role Phone ALEXANDRIA KHAN Primary Care Provider Assessment Encounter Date Assessment Date Assessment LastModified by Organization Details LastModified Time 10/03/2019 10/03/2019 Overview/History : 59 yo female new to and this provider who presents with complain of cold symptoms X1 wk. patient reports subjective fevers; she has no thermometer to check; patient also reports generalized malaise/fatigue, loss of sense of smell and taste, occasional nausea; she denies vomiting, abdominal pain, cough, shortness of breath. Comorbidities: obesity, HTN, arthritis Exam: morbidly obese female, who appears tired but otherwise well, no acute distress, non-toxic appearance; alert and oriented X3; bed bound at baseline due to obesity Mucous membranes are pink and moist without lesions; Oropharynx without erythema or exudate. Nasal mucosa is pink and moist; nasal passages are patent bilaterally; ear canals are clear without erythema or discharge bilaterally; TMs are pearly booth, non-bulging, non-erythematous Heart sounds are regular rate and rhythm; no audible murmurs, rubs, or gallops No signs of respiratory distress. Unable to auscultate due to lung sounds due to body habitus abdomen is soft, non tender, non distended. Bowel sounds are normoactive and present in all quadrants No edema, erythema or cyanosis of lower extremities DDx considered, but not limited to: Viral syndrome Influenza COVID19 Dehydration/ady/ electrolyte derangement - patient declined blood work Work up/Results: Rapid flu COVID19 Plan/Discussion: - patient's VS are stable; she reports symptoms are improving - rapid flu is negative, COVID19 is pending; patient declined further work up stating she just wants to know if that's COVID - advised rest, proper hydration, tylenol prn for pain/fever - follow up with PCP as needed within 3-5 days or sooner if symptoms worsen or do not improve - advised when to seek immediate medical attention/911/ED - patient expressed understanding and agreed to tx plan In order to obtain further information and compare any laboratory results/values, I have accessed patient records on the [facility]. This information was pertinent in my medical decision making today. Proper Personal Protective Equipment (PPE), including gloves, eye protection, N95 mask, gown, and shoe covers were donned and doffed appropriately and all equipment cleaned using approved technique with germicidal disposable wipes prior to and after care of this patient according to [facility] infection prevention protocols. Time On Scene with Patient: 00:38:53 otto Not available 10/03/2019 19:22:46 Plan of Treatment Reminders Order Date Submit Date Provider Last Modified By Organization Details Last Modified Time Details Appointments None recorded. 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 Procedures None recorded. Surgeries None recorded. Imaging None recorded. Medication Orders None recorded. Patient TargetsNo targets recorded. Patient Instructions Encounter Date Encounter Id Patient Instructions Last Modified By Organization Details Last Modified Time 10/03/2019 [id number] What is coronavirus disease 2019? Coronavirus disease 2019 (COVID-19) is a respiratory illness that can spread from person to person. The virus that causes COVID-19 is a novel coronavirus that was first identified during an investigation into an outbreak in [facility]. Can I get COVID-19? Yes. COVID-19 is spreading from person to person in parts of the world. Risk of infection from the virus that causes COVID-19 is higher for people who are close contacts of someone known to have COVID-19, for example household members. Other people at higher risk for infection are those who live in or have recently been in an area with ongoing spread of COVID-19. How does COVID-19 spread? The virus that causes COVID-19 probably emerged from an animal source, but is now spreading from person to person. The virus is thought to spread mainly between people who are in close contact with one another (within about 6 feet) through respiratory droplets produced when an infected person coughs or sneezes. It also may be possible that a person can get COVID-19 by touching a surface or object that has the virus on it and then touching their own mouth, nose or possibly their eyes, but this is not thought to be the main way the virus spreads. What are the symptoms of COVID-19? Patients with COVID-19 have mild to severe respiratory illness with symptoms of: fever cough shortness of breath What are severe complications from this virus? Some patients have pneumonia in both lungs, multi-organ failure and in some cases . People can help protect themselves from respiratory illness with everyday preventative actions. Avoid close contact with people who are sick. Avoid touching your eyes, nose, and mouth with unwashed hands. Wash your hands often with soap and water for at least 20 seconds. Use an alcohol-based hand riveter hand that contains at least 60% alcohol if soap and water are not available If you are sick, to keep from spreading respiratory illness to others, you should Stay home when you are sick. Cover your cough or sneeze with a tissue, then throw the tissue in the trash. Clean and disinfect frequently touched objects and surfaces. Is there a vaccine? There is currently no vaccine to protect against COVID-19. The best way to prevent infection is to take everyday preventive actions, like avoiding close contact with people who are sick and washing your hands often. Is there a treatment? There is no specific antiviral treatment for COVID-19. People with COVID-19 can seek medical care to help relieve symptoms. FOR MORE INFORMATION: [email or web address].[email or web address] Not available 10/03/2019 14:46:27 Reason for Referral None Reported. Results Created Date Observation Date Name Description Value Unit Range Abnormal Flag Note LastModifiedBy Organization Detail LastModifiedTime 10/03/19 20 10/03/2019 rapid flu (A+B) Flu A negati ve Not Available [facility] - Home [address], [place], [address], 10/03/2019 14:38:37 10/03/19 20 10/03/2019 rapid flu (A+B) Flu B negati ve Not Available [facility] - Home [address] [place], [address], 10/03/2019 14:38:37 10/03/19 20 10/03/2019 rapid flu (A+B) Control Visual ized / Valid Not Available [facility] - Home [address], [place], [address], 10/03/2019 14:38:37 10/03/19 20 10/04/2019 SARS CoV 2 RNA (COVI D-19) , QL, audio visual collections coordinator-P CR, respi rator y speci men covid-19 PCR overall result (neg) normal NEGAT TRACI 2019- novel Coron aviru s (2018 -nCoV ) not detec marilu by real- time RT-PC R. Note: If clini dewayne suspi cion for COVID -19 is high, yuridia nue to maint ain preca ution s and consi priyanka repea t testi ng. Resul t repor marilu to [facility]. To preve nt error s in diagn osis, test resul ts shoul d be inter prete d in the mikaela xt of clini dewayne findi ngs and other labor atory data. Rare polym orphi sms exist that could lead to false -nega tive or false -posi tive resul ts. If resul ts obtai lara do not match the clini dewayne findi ngs, addit ional testi ng shoul d be consi dered . This test has been autho rized by the FDA under an Emerg ency Use Autho rizat ion (EUA) for use by autho rized labor atori es. Testi ng perfo rmed by real time PCR utili ng PHILL VDP0 SARS- CoV-2 test. Not Available [facility] (Centralized Electronic Ordering - All Locations) Patient Can Go To The Location Of Their Choice, [id number] 10/04/2019 10:49:34 Result Notes None recorded. Medical Equipment None Reported. Allergies Allergen ID Allergen Name Allergen Category Reaction Reaction Severity Criticality Documentation Date Start Date Code Code System Note Provider Name and Address Organization Details Recorded Time 169149 Tessalon Perles medicatio n Not available Not available Not available 10/03/201943163 4 [facility] MICHAEL MONTERO, [place] [address], [place], [address], [place] [facility] 0 14:33:23 [id number] Benadryl medicatio n Not available Not available Not available 10/03/201930743 7 [facility] MICHAEL MONTERO, [place] [address], [place], [address], [place] [facility] 0 14:33:33 [id number] acetamino phen / oxycodone medicatio n Not available Not available Not available 10/03/201951095 3 [facility] MICHAEL MONTERO, [place] [address], [place], [address], [place] [facility] 0 14:33:42 [id number] Product containin g penicilli n (product) medicatio n Not available Not available Not available 10/03/2019 74423 8001 SNOMED MICHAEL MONTERO, [place] [address], [place], [address], [place] [facility] 0 14:33:51 513952 Biaxin medicatio n Not available Not available Not available 10/03/201928733 9 [facility] MICHAEL MONTERO, [place] [address], [place], [address], [place] [facility] 0 14:34:07 [id number] doxycycli ne Not available Not available Not available Not available 10/03/2019 3640 Rx[facility] MICHAEL MONTERO, [place] [address], [place], [address], [place] [facility] 0 14:34:20 [id number] Keflex medicatio n Not available Not available Not available 10/03/2019 30881 7 [facility]EN CONNORS [address] [facility] [place], [address] [facility] [place] [facility] 0 14:34:29 Medications Name Sig Start Date Stop Date Status Note LastModified by Organization Details LastModified Time hydrochlorothiazide active Not Availab le Not Available Not Available metoprolol succinate active Not Available Not Available No t Available Vitals Date Recorded Heart rate Body temperature Oxygen saturation Oxygen saturation in Arterial blood by Pulse oximetry Respiratory rate Systolic blood pressure Diastolic blood pressure Provider Name and Address Organization Details Last Updated DateTime 0 89 /min 97.9 [degF] 100 % 100 % 18 /min 128 mm[Hg] 72 mm[Hg] Not Available [facility] 0 14:15:20 Social History None recorded. Functional Status None recorded. Mental Status None recorded. Family History Relationship Description Onset Age of this Age Resolved Age Notes LastModified by Organization Details LastModified Time Father No current problems or disability [email or web address] Not available 10/02 14:35:41 Mother No current problems or disability [email or web address] Not available 10/02 14:35:41 Medical History Condition Response Coronary Artery Disease N COPD N Depression N Cancer N Stroke N High Cholesterol N Kidney Disease N Diabetes N Asthma N Pulmonary Embolism N Hypertension Y Gynecological HistoryNo gynecological history recorded. Obstetrics History GPAL:G 0 P 0 0 0 0 Past Encounters Encounter ID Performer Location Encounter Start Date Encounter Closed Date Diagnosis/Indication Diagnosis SNOMED-CT Code Diagnosis ICD10 Code Diagnosis Note [id number] KAREN CONNORS [facility] [address] [place] [address] 10/03/2019 14:08:58 10/04/2019 10:55:49 Exposure to viral disease 8378133550 52592 Z20.828 Health Concerns Section Related Observation LastModified by Organization Detai ls LastModified Time None Recorded Concern Status LastModified by Organization Details LastModified Time None Recorded Advance Directives Directive None Recorded Payers Insurance Date Sequence Insurance Name Policy Number Policy Santos Covered Member ID Santos Member ID Guarantor Name 10/21/2019 1 [id number] Bertha Patel [id number] Bertha Patel 10/03/2019 1 *SELF PAY* Bertha Patel [id number] Bertha Patel Notes Date Note Type Note Provider Name and Address Organization Details Recorded Time 10/03/2019 text/html Mrs. Patel is a 59 yo female new to and this provider who presents with complain of cold symptoms X1 wk. patient reports subjective fevers; she has no thermometer to check; patient also reports generalized malaise/fatigue, loss of sense of smell and taste, occasional nausea; she denies vomiting, abdominal pain, cough, shortness of breath. KAREN CONNORS [address], [place], [address], [place] [facility] 10/03/2019 19:22:55 OBGyn Episode No OBEpisode recorded.
== END 2024-10-06 11:03 | disposition home or self-care (01) ==
LOC: HO.HMCHD 10:56
PROVIDERS: PCP Internal Medicine; Visit Provider Internal Medicine
DX: I10 Essential (primary) hypertension (principal)

== ENCOUNTER → 2024-10-06 10:56 | Outpatient (BNVA) | payer MEDICARE, MEDICAID, SELFPAY | PROVIDERS: PCP Internal Medicine; Visit Provider Internal Medicine ==

== ENCOUNTER 2025-01-12 09:51 | Outpatient (AMB) | payer MEDICARE, MEDICAID, SELFPAY ==
--- NOTE | 2025-01-12 10:20 | A.OFFPC_ITS ---
Intake Visit Reasons: Tele Health Allergies clarithromycin (From Biaxin) Allergy (Unknown, Verified 10/06/24 12:58) doxycycline (Doxycycline) Allergy (Unknown, Verified 10/06/24 12:58) Penicillins Allergy (Unknown, Verified 10/06/24 12:58) From Keflex Allergy (Unknown, Uncoded 10/06/24 12:58) Medication List - Last Reconciled 01/12/25 by Sean Ascencio MD ascorbic acid (vitamin C) 500 mg PO BID cholecalciferol (vitamin D3) (Vitamin D3) 10 mcg PO DAILY ferrous gluconate 0 mg hydrochlorothiazide 25 mg PO DAILY Lactobacillus acidophilus (Acidophilus capsule) 0 mg PO DAILY metoprolol tartrate 50 mg PO BID pyridoxine (vitamin B6) (Vitamin B-6) 25 mg PO DAILY vitamin E 0 mg PO DAILY Tobacco use date assessed: 10/06/24 Dental Screening Dental Screen Date: 10/06/24 HPI HPI Comments History of Present Illness Details The patient is a 64-year-old female presenting with a range of chronic conditions requiring management and follow-up, including Essential Hypertension, Obstructive Sleep Apnea with nocturnal hypoxemia, Severe Obesity, a recent history of posterior foot ulcer, and Iron Deficiency Anemia. Essential Hypertension was previously diagnosed, and management is ongoing with hydrochlorothiazide and metoprolol, though the patient currently lacks the means to monitor blood pressure at home. Hospital-based monitoring recently affirmed normal blood pressure levels. Obstructive Sleep Apnea is managed with CPAP therapy, supplemented by oxygen, which the patient consistently adheres to. Recently, concerns about outdated CPAP equipment and issues in acquiring a new machine were noted. Severe Obesity has resulted in the patient being bedbound and encountering complications such as nocturnal hypoxemia. Management involves ongoing use of required medical equipment, and previously, blood was drawn by hospital staff due to difficulty in mobility and access. Posterior foot ulcer was improving, with only a few unresolved areas. No visiting nurses have been involved since the resolution of the foot issue. Iron Deficiency Anemia is currently managed with iron supplementation. The patient also reported irregular bowel habits, characterized by frequent elimination shortly after meals, occurring more often than not. The patient's insomnia is partially managed, with reports of sleeping for three to four hours a night and taking naps during the day. Medical History: - Essential Hypertension - Obstructive Sleep Apnea - Severe Obesity - Iron Deficiency Anemia - Posterior foot ulcer (recent) - Nocturnal Hypoxemia Medications: - Hydrochlorothiazide 25 mg for Essentia l Hypertension - Metoprolol 50 mg, twice a day for hear t rate management - Vitamin C supplement - Vitamin D supplement - Iron tablet for Iron Deficiency Anemia - Vitamin B6 - Vitamin E Social History: - Non-smoker, does not use alcohol or re creational drugs - Bedbound due to severe obesity - Sleeps well currently, reports adjuste d sleep schedule with nightly sleep of three to four hours and daytime napping - Stable living situation, minimal envir onmental issues mentioned - Adhering to a yazidi practice as a Congregation [facility] Medical History (Updated 01/12/25 @ 10:32 by Sean Ascencio MD) MAR on CPAP Nocturnal hypoxemia Obesity (BMI 30-39.9) Obstructive sleep apnea Hypertension Social History Household Members: Spouse Housing: House Do you presently have visiting nurse or other home services: No (previously had with help w/ ADLs) Patient Tobacco Use Status: Never used Tobacco e-Cigarette/Vaping Use: Never Used Second Hand Smoke Exposure: No service: No Current occupational status: retired Cognitive needs: No Hearing needs: No Vision needs: No Questionnaire PHQ-9 Over the last 2 weeks, how often have you been bothered by any of the following problems? 1. Little interest or pleasure in doing things: not at all 2. Feeling down, depressed, or hopeless: not at all 3. Trouble falling or staying asleep, or sleeping too much: not at all 4. Feeling tired or having little energy: not at all 5. Poor appetite or overeating: not at all 6. Feeling bad about yourself - or that you are a failure or have let yourself or your family down: not at all 7. Trouble concentrating on things, such as reading the newspaper or watching television: not at all 8. Moving or speaking so slowly that other people could have noticed. Or the opposite - being so fidgety or restless that you have been moving around a lot more than usual: not at all 9. Thoughts that you would be better off or of hurting yourself in some way: not at all Total score: 0 Depression Screening Interpretation: Negative Depression Screening Done: Yes 48956 - PHQ-9 Billing: Yes Source: Developed by Drs. Ortiz Williamson, Ashleigh Brenner, Reggie Saul and colleagues, with an educational dominik from [employer]. Thrive Questionnaire Date Thrive assessed: 01/12/25 I am a: Patient What is your living situation today?: I have a steady place to live Within the past 12 months, did the food you bought not last and you didn't have the money to get more?: Never true Within the past 12 months, did you worry whether your food would run out before you got money to buy more?: Never true Do you have trouble paying for medicines?: No Do you have trouble getting transportation to medical appointments?: No Do you have trouble paying your heating and electricity bill?: No Do you have trouble taking care of your child, family member or friend?: No Do you have trouble with day-to-day activities such as bathing, preparing meals, shopping, managing finances, etc.?: No Are you currently unemployed and looking for a job?: No Are you interested in more education?: No THRIVE Score: 0 AUDIT C Alcohol Use Questionnaire (AUDIT-C) 1. How often do you have a drink containing alcohol?: Never 3. How often do you have six or more drinks on one occasion?: Never Total Score: 0 Score Reviewed/Action Taken: Yes CHAO-7 AMB Questionnaire CHAO-7 Date CHAO - 7 assessed: 01/12/25 Feeling nervous, anxious, or on edge: 0 = Not at all Not being able to stop or control worryin = Not at all Worrying too much about different things: 0 = Not at all Trouble relaxin = Not at all Being so restless that it is hard to sit still: 0 = Not at all Becoming easily annoyed or irritable: 0 = Not at all Feeling afraid as if something awful might happen: 0 = Not at all Total CHAO-7 score (0-4 normal; 5-9 mild; 10-14 moderate; 15-21 severe): 0 Source: Developed by Drs. Ortiz Williamson, Reggie Giron and colleagues, with an educational dominik from [employer]. CHAO-7 Assessment Billing CHAO-7 Assessment Tool: CHAO-7 Assessment 35306 Review of Systems Const Details: - Cardiovascular: Denies regular home blood pressure monitoring - Respiratory: Using CPAP with oxygen, managed obstructive sleep apnea; Denies issues without CPAP - Gastrointestinal: Reports irregular bowel movements - Genitourinary: Denies any urinary issues - Neurologic: Reports well-adjusted sleep patterns with nighttime adjustments - Psychiatric: Denies feelings of depression or anxiety - Musculoskeletal: Denies joint pain - Dermatologic: Reports healing of previous foot ulcers Physical exam (Primary Care) Tobacco/Smoking Status: Tobacco use Status Tobacco use date assessed 10/06/24 01/12/25 10:23 Patient Tobacco Use Status Never used Tobacco 01/12/25 10:23 e-Cigarette/Vaping Use Never Used 01/12/25 10:23 PHQ-9: PHQ-9 Score PHQ-9: Total score 0 01/12/25 10:23 Depression Screening Interpretation: Negative Thrive Assessment: Date of Thrive Assessment Date Thrive assessed 01/12/25 01/12/25 10:23 Telehealth Telehealth Telehealth Platform: Telephone Location of provider rendering services: practice address Location of patient: address on file Patient Identification confirmed using: Name, : Yes Telehealth method: voice only Patient verbally consented to treatment: Yes Patient verbally consented to billing insurance company: Yes Patient informed of any privacy concerns related to visit: Yes Minutes spent on Phone/Video with Pt.: 18 Coding Level of Care Code Tele Est Pt Level 4 (26339) Complex EM visit Add On G2211 Diagnoses Hypertension, unspecified type I10 Hypertension type: unspecified Obesity (BMI 30-39.9) E66.9 Bullous impetigo L01.03 Nocturnal hypoxemia G47.34 MAR on CPAP G47.33 Additional Codes CHAO-7 Assessment Billing - CHAO-7 Assessment Tool: CHAO-7 Assessment 31896 ([id number]) PHQ-9 - 89416 - PHQ-9 Billing: Yes ([id number]) Assessment & Plan Assessment & Plan (1) Hypertension: Comment: - Continue current antihypertensive regimen with hydrochlorothiazide and metoprolol - Plan to provide a home blood pressure monitoring device to allow for home blood pressure monitoring to determine if changes are required for home blood pressure medications Code(s): I10 - Essential (primary) hypertension Category: Medical Qualifiers: Hypertension type: unspecified Qualified Code(s): I10 - Essential (primary) hypertension (2) Obesity (BMI 30-39.9): Comment: - Resulting in patient being bed bound - Assistance at home from Code(s): E66.9 - Obesity, unspecified Category: Medical (3) Bullous impetigo: Comment: - Admitted to the hospital in August for bullous impetigo and was subsequently treated with broad-spectrum antibiotics before being discharged home on clindamycin. She completed treatment also had VNA assistance with wound care. Reports resolution of the symptoms just has a few skin patches that are gradually healing. Code(s): L01.03 - Bullous impetigo Category: Medical (4) Nocturnal hypoxemia: Comment: The patient has severe obesity resulting in profound immobility and functional l imitation, rendering her bedbound and unable to ambulate. Due to her obesity and resultant restrictive physiology, she has developed obstructive sleep apnea with nocturnal hypoxemia, requiring supplemental oxygen therapy to maintain adequate oxygen saturation during sleep. Pulse oximetry has confirmed desaturation at night in the absence of oxygen, with improvement noted on supplemental oxygen. Given her bedbound status, severe obesity, and MAR-associated nocturnal hypoxemia, ongoing home oxygen is medically necessary to prevent complications such as cardiopulmonary strain, recurrent hypoxemia, and further decline in functional status. Code(s): G47.34 - Idiopathic sleep related nonobstructive alveolar hypoventilation Category: Medical (5) MAR on CPAP: Comment: The patient has severe obstructive sleep apnea (MAR) in the setting of morbid obesity (BMI >40), with documented nocturnal hypoxemia and sleep-disordered breathing. Overnight testing has demonstrated recurrent apneic and hypopneic events associated with oxygen desaturation and sleep fragmentation. CPAP therapy is medically necessary to provide continuous positive airway pressure, reduce apneic episodes, correct nocturnal hypoxemia, and prevent sequelae including pulmonary hypertension, cardiovascular complications, excessive daytime somnolence, and further functional decline. Given her bedbound status and dependence on supplemental oxygen, CPAP therapy is required for stabilization of her respiratory status and improvement in overall quality of life. Code(s): G47.33 - Obstructive sleep apnea (adult) (pediatric) Category: Medical Plan During the visit, I reviewed the patient's chronic conditions, including Essential Hypertension, Obstructive Sleep Apnea, and Severe Obesity. We discussed the importance of home monitoring of blood pressure and the need for updated CPAP equipment due to equipment age. The patient was advised to continue current medications and treatments. We explored options for logistics in drawing blood for overdue cholesterol tests. All recommendations, including home equipment and potential updates, were consented to by the patient. Future follow-ups will address unresolved logistics, and I'll check with the laboratory for potential accommodations to draw blood at home. Medications: New Oxygen Home Use As directed 1 ea 0RF blood pressure monitor As directed 1 ea 0RF CPAP (CPAP Machine/Device) As directed 1 ea 0RF Patient Instructions: - Keep taking your prescribed medications as directed - Use your CPAP machine with oxygen every night - Expect a home blood pressure monitor soon - Maintain current sleep habits and manage daytime naps - Watch any changes in bowel habits or skin healing and report any concerns - Stay in contact with [facility] for updates on CPAP equipment - Follow up on any further testing scheduled - Contact us with any questions or if your condition changes
== END 2025-01-12 10:32 | disposition home or self-care (01) ==
LOC: HO.HMCHD 09:51
PROVIDERS: PCP Student in an Organized Health Care Education/Training Program; Visit Provider Student in an Organized Health Care Education/Training Program
DX: I10 Essential (primary) hypertension (principal); E66.9 Obesity, unspecified; L01.03 Bullous impetigo; G47.34 Idiopathic sleep related nonobstructive alveolar hypoventilation; G47.33 Obstructive sleep apnea (adult) (pediatric)

== ENCOUNTER → 2025-01-12 09:51 | Outpatient (BNVA) | payer MEDICARE, MEDICAID, SELFPAY | PROVIDERS: PCP Student in an Organized Health Care Education/Training Program; Visit Provider Student in an Organized Health Care Education/Training Program | DX: I10 Essential (primary) hypertension (principal); L01.03 Bullous impetigo; G47.34 Idiopathic sleep related nonobstructive alveolar hypoventilation; G47.33 Obstructive sleep apnea (adult) (pediatric); E66.01 Morbid (severe) obesity due to excess calories; J96.11 Chronic respiratory failure with hypoxia; Z79.899 Other long term (current) drug therapy; Z13.31 Encounter for screening for depression; Z13.39 Encounter for screening examination for other mental health and behavioral disorders | CPT/HCPCS: 96127 ==